=== PATIENT | male | born 1955 | race Caucasian/White ===

== ENCOUNTER 2017-10-16 14:57 | Inpatient (IN) ==
--- NOTE | 2017-10-16 15:12 | Emergency Department Note ---
Disposition Clinical Impression: Left-sided weakness Disposition: Admitted As Inpatient Condition: Fair Time of Disposition: 18:51 Neuro HPI - General Chief Complaint: ED Weakness Stated Complaint: left sided weakness, chest pain Time Seen by Provider: 10/16/17 14:59 Source: patient, family, EMS Mode of arrival: EMS Limitations: altered mental status Nursing Notes Reviewed: Yes Vital Signs Reviewed: Yes - History of Present Illness HPI Narrative: 62-year-old male history of A. fib on Xarelto, CAD, AICD, Cardimyopathy,HTN, HLD , history of CVA 4 years ago presents with a acute onset left-sided weakness, this was last done well at 12:30, his son states that he drove away, this is the last known well we think about 12:00 to 12:30. he came back at 1:00 with some facial droop slurred speech and unable to lift his left arm, stumbling around, they went to the [facility] and the [facility] did not get any imaging they did send them to [place] to be evaluated. He arrived here at 1504 Onset of Symptoms Date: 10/16/17 Onset of Symptoms Time: 12:30 Symptom Onset Unknown: Yes Timing confirmed by: family member Location: speech, left face, left arm, left leg History of same: Yes Severity: mild Symptoms Improving: Yes Improves with: time Context: gradual onset On Anticoagulants: No Associated symptoms: Reports: cough. Denies: confusion, chest pain, diaphoresis , fever/chills, headaches, loss of appetite - Related Data Home Medications: Home Medications Medication Instructions Recorded Confirmed Atorvastatin Calcium [Lipitor] 20 mg PO DAILY 09/25/15 10/16/17 Baclofen [Lioresal] 10 mg PO BID 09/25/15 10/16/17 Cholecalciferol (Vitamin D3) 3,000 unit PO DAILY 09/25/15 10/16/17 [Vitamin D3] Donepezil [Aricept] 10 mg PO HS 09/25/15 10/16/17 Insulin Glargine [Lantus] 60 unit SQ HS #0 09/25/15 10/16/17 Magnesium Oxide [Magnesium] 400 mg PO DAILY 09/25/15 10/16/17 Melatonin 12 mg PO HS 09/25/15 10/16/17 Multivit-Min/Iron Fum/Folic AC 1 each PO DAILY 09/25/15 10/16/17 [Ihptm-Bydstyh-Fiwwdkxh Tablet] Nitroglycerin [Nitrostat] 0.4 mg SL AD PRN 09/25/15 10/16/17 Omeprazole [PriLOSEC] 20 mg PO DAILY 09/25/15 10/16/17 Sertraline [Zoloft] 100 mg PO DAILY 09/25/15 10/16/17 Spironolactone [Aldactone] 25 mg PO DAILY 09/25/15 10/16/17 TraZODone 200 mg PO HS 09/25/15 10/16/17 Pregabalin [Lyrica] 225 mg PO BID 03/15/16 10/16/17 diazePAM [Valium] 5 mg PO TID 03/15/16 10/16/17 Insulin Human Regular [HumuLIN R] 3 - 8 unit SQ TIDWM 08/17/16 10/16/17 Lisinopril [Zestril] 2.5 mg PO DAILY 08/17/16 10/16/17 Sennosides/Docusate Sodium 100 tab PO HS 08/17/16 10/16/17 [Senna-Docusate Sodium Tablet] Isosorbide MONOnitrate [Isosorbide 40 mg PO DAILY 10/16/17 10/16/17 Mononitrate] Rivaroxaban [Xarelto] 20 mg PO HS 10/16/17 10/16/17 metFORMIN [Glucophage] 500 mg PO BIDWM 10/16/17 10/16/17 rOPINIRole [Requip] 0.25 mg PO HS 10/16/17 10/16/17 Previous Rx's Medication Instructions Recorded Aspirin [Adult Low Dose Aspirin EC] 81 mg PO DAILY #30 tablet. 09/25/15 Carbidopa/Levodopa 25/100 [Sinemet] 1 each PO TID #90 tablet 09/25/15 Furosemide [Lasix] 40 mg PO DAILY #30 tablet 08/19/16 OxyCODONE/APAP 10/325 [Percocet 1 each PO Q6H PRN #20 tablet 08/19/16 10/325 MG] Allergies/Adverse Reactions: Allergies Allergy/AdvReac Type Severity Reaction Status Date / Time codeine Allergy Mild Abdominal Verified 08/16/16 22:55 Pain All systems ED: reviewed and negative except as stated. Review of Systems: As Per HPI Constitutional: Reports: fever, chills Eyes: Denies: eye pain ENT ED: Reports: congestion. Denies: ear pain, throat pain Cardiovascular: Denies: chest pain Respiratory: Reports: cough, dyspnea Gastrointestinal: Denies: abdominal pain, nausea Genitourinary: Denies: urgency Musculoskeletal: Denies: back pain, neck pain Integumentary: Denies: rash Neurological: Reports: as per HPI, weakness, numbness. Denies: headache Past Medical History - Past Medical History Attestation: Yes The following information was validated with the patient. Source: patient Medical history: Reports: atrial fibrillation, cardiomyopathy, coronary artery disease, diabetes, GERD, hyperlipidemia, hypertension, myocardial infarction Surgical history: Reports: angioplasty/stent, appendectomy, cholecystectomy, other (unspecified abdominal), pacemaker Psychiatric history: Reports: anxiety, PTSD - Social History Smoking Status: Never smoker Smokeless Tobacco Status: No Alcohol use: Reports: none Drug use: Reports: none Physical Exam - General Limitations: altered mental status General appearance: alert - Head Head exam: atraumatic - Eye Eye exam: Present: normal appearance, PERRL - ENT ENT exam: normal exam - Neck Neck exam: Present: normal inspection, full ROM - Chest Chest inspection: Present: normal inspection - Respiratory Respiratory exam: Present: normal lung sounds bilaterally. Absent: respiratory distress - Cardiovascular Cardiovascular exam: Present: regular rate, normal rhythm - Abdominal Exam Abdominal exam: Present: soft, Non-Tender - Extremities Exam Extremities exam: Present: normal inspection, full ROM - Expanded Neurological Exam Patient oriented to: Present: person, place, time Speech: Absent: fluid speech Cranial nerves: EOM function (II, III, IV, ): Normal, facial sensation (V): Normal, facial palsy (VII): Normal, gag reflex (IX): Normal, spinal accessory function (XI): Normal, tongue deviation (XII): Normal Cerebellar function: finger to nose: Abnormal Left, heel to mendez: Normal Motor strength - LUE: 4/5 Motor strength - RUE: 5/5 Motor strength - LLE: 4/5 Motor strength - RLE: 5/5 Upper motor neuron exam: timoteo neglect: Absent bilaterally Coma Scale Eye Opening: Spontaneous Coma Scale Motor Response: Obeys Commands Coma Scale Verbal Response: Oriented Coma Scale Total: 15 - Psychiatric Psychiatric exam: Present: normal affect - Skin Skin exam: Present: warm, dry Course Course Narrative: Stroke alert activated at 1504 patient with left-sided sensory facial deficits, slurred speech, mild motor weakness on the left upper and lower extremity. NIH of 6. Also contraindications include Xarelto use, will get Accu-Chek basic lab work CT head, vital signs. [facility] telestroke to bedside - Reevaluation(s) Reevaluation #1: Patient with CTA head and neck, after CTA imaging will talk to neurology patient 's hemogram is stable at this time his NIH is improved to 4 for sensory, weakness, aphasia, but no ataxia anymore Time: 16:30 Reevaluation #2: CTA head and neck showed no evidence of acute stenosis, patient will be admitted to the hospitalist service Dr. Poole excepted the patient, patient was given aspirin, plan is for workup for stroke. Possible acute CVA outside of the window risk factors include Xarelto use and unclear last known well. Time: 18:50 - Consultations Consultation #1: Neurologist recommends no tPA, CTA head and Neck Vital Signs Temperature 98.8 F 10/16/17 14:58 Pulse Rate 76 10/16/17 14:58 Respiratory Rate 19 10/16/17 14:58 Blood Pressure 000/00 10/16/17 14:58 O2 Sat by Pulse Oximetry 97 10/16/17 14:58 Temperature 98.2 F 10/16/17 19:44 Pulse Rate 63 10/16/17 19:44 Respiratory Rate 17 10/16/17 19:44 Blood Pressure 122/62 10/16/17 19:44 O2 Sat by Pulse Oximetry 97 10/16/17 19:44 Oxygen Delivery Oxygen Delivery Room Air Neuro Symptoms/Deficit - Differential Diagnosis Likely: cerebrovascular accident, subarachnoid hemorrhage, transient cerebral ischemia, peripheral neuropathy - Medical Records Medical records reviewed: Yes I reviewed the patient's medical records. - Lab Data Lab results reviewed: Yes I reviewed the patient's lab results. Result diagrams: 10/16/17 15:18 10/16/17 15:18 Lab Results 10/16/17 10/16/17 10/16/17 Range/Units 15:18 15:18 15:18 WBC 10.6 (4.3-11.1) K/mcL RBC 4.49 (4.19-5.50) M/mcL Hgb 11.7 L (12.9-16.9) g/dL Hct 36.4 L (37.5-50.1) % MCV 81.1 L (83.0-100.0) fL MCH 26.1 L (28.0-33.3) pg MCHC 32.1 (31.6-35.5) g/dL RDW 18.2 H (11.5-14.5) % Plt Count 225 (140-400) K/mcL MPV 10.0 (9.4-12.4) fL Immature Gran % 0.4 (0-4) % Seg Neutrophils % 61.6 % Lymphocytes % 30.5 % Monocytes % 6.4 % Eosinophils % 0.7 % Basophils % 0.4 % Neutrophils # 6.5 (1.6-8.9) K/mcL Lymphocytes # 3.2 (0.6-4.6) K/mcL Monocytes # 0.7 (0.0-1.3) K/mcL Eosinophils # 0.1 (0.0-0.6) K/mcL Basophils # 0.0 (0.0-0.2) K/mcL PT 13.7 H (9.4-12.1) Seconds INR 1.3 APTT 30.2 (26.0-36.0) Seconds Sodium 135 L (136-145) mEq/L Potassium 4.4 (3.5-5.1) mEq/L Chloride 102 (98-107) mEq/L Carbon Dioxide 26 (23-29) mEq/L BUN 14 (8-23) mg/dL Creatinine 1.06 (0.70-1.30) mg/dL Est GFR ( Amer) > 60 (> 60) Est GFR (Non-Af Amer) > 60 (> 60) BUN/Creatinine Ratio 13 (6-26) Glucose 141 H (70-105) mg/dL Calculated Osmolality 283 (280-300) Calcium 9.0 (8.6-10.3) mg/dL Troponin I (< 0.04) ng/mL 10/16/17 Range/Units 15:18 WBC (4.3-11.1) K/mcL RBC (4.19-5.50) M/mcL Hgb (12.9-16.9) g/dL Hct (37.5-50.1) % MCV (83.0-100.0) fL MCH (28.0-33.3) pg MCHC (31.6-35.5) g/dL RDW (11.5-14.5) % Plt Count (140-400) K/mcL MPV (9.4-12.4) fL Immature Gran % (0-4) % Seg Neutrophils % % Lymphocytes % % Monocytes % % Eosinophils % % Basophils % % Neutrophils # (1.6-8.9) K/mcL Lymphocytes # (0.6-4.6) K/mcL Monocytes # (0.0-1.3) K/mcL Eosinophils # (0.0-0.6) K/mcL Basophils # (0.0-0.2) K/mcL PT (9.4-12.1) Seconds INR APTT (26.0-36.0) Seconds Sodium (136-145) mEq/L Potassium (3.5-5.1) mEq/L Chloride (98-107) mEq/L Carbon Dioxide (23-29) mEq/L BUN (8-23) mg/dL Creatinine (0.70-1.30) mg/dL Est GFR ( Amer) (> 60) Est GFR (Non-Af Amer) (> 60) BUN/Creatinine Ratio (6-26) Glucose (70-105) mg/dL Calculated Osmolality (280-300) Calcium (8.6-10.3) mg/dL Troponin I < 0.03 (< 0.04) ng/mL - Radiology Data Radiology results reviewed: Yes I reviewed the patient's radiology results. Head CT 10/16/17 15:08 IMPRESSION: No acute intracranial abnormality. Specifically, there are no findings diagnostic of an acute infarct. Critical results were called by Dr. Júnior Bill to Antonio Ontiveros on 10/16/2017 at 15:30. D/ / 10/16/2017 15:27:46 Júnior Bill / dino Interpreting Provider: Júnior Bill Chest X-Ray 10/16/17 15:09 IMPRESSION: No acute cardiopulmonary disease. Cardiomegaly without overt failure. D/ / Aman Fuentes MD / Aman Fuentes MD Interpreting Provider: Aman Fuentes MD Head CTA 10/16/17 15:50 IMPRESSION: No high-grade stenosis or focal occlusion involving the intracranial vasculature, or cervical vasculature. Mild atherosclerotic disease involving the bilateral carotid bifurcation, without flow-limiting stenosis. Additional findings as detailed above. D/ / 10/16/2017 17:31:20 Leif Fowler MD / trinity Interpreting Provider: Leif Fowler MD Neck CTA 10/16/17 15:50 IMPRESSION: No high-grade stenosis or focal occlusion involving the intracranial vasculature, or cervical vasculature. Mild atherosclerotic disease involving the bilateral carotid bifurcation, without flow-limiting stenosis. Additional findings as detailed above. D/ / 10/16/2017 17:31:20 Leif Fowler MD / trinity Interpreting Provider: Leif Fowler MD - EKG Data EKG attestation: Yes I reviewed and interpreted this EKG. EKG shows normal: sinus rhythm Rate: normal (60 bpm electronically ventricularly paced QRS 156 QTC 513 unchanged from previous EKG) When compared to previous EKG there are: no significant changes NIH Stroke Scale - Level of Consciousness LOC: Alert - LOC Questions LOC Questions: Answers both correctly - LOC Commands LOC Commands: Performs both correctly - Best Gaze Best Gaze: Normal - Visual Visual: No visual loss - Facial Palsy Facial Palsy: Normal - Motor Arms Motor Arm-Left: Drift, does NOT hit bed Motor Arm-Right: No drift for 10 seconds - Motor Legs Motor Leg-Left: Drift, does NOT hit bed Motor Leg-Right: No drift for 5 seconds - Limb Ataxia Limb Ataxia: Present in ONE limb - Sensory Sensory: Mild to moderate loss, "not as sharp" - Best Language Best Language: Mild to moderate aphasia. Examiner can identify picture from response - Dysarthria Dysarthria: Mild, slurs some words - Extinction and Inattention Extinction and Inattention: Normal - NIHSS Total Score NIHSS Total Score: 6 TPA Checklist - Source Information Source: Family - Eligibilty for IV tPA 1. LKW equal to or less than 4.5 hours be before treatment: Yes 2. Clinical diagnosis of ischemic stroke causing deficit: Yes 3. Age 18 years or older: No - Contraindications 4. Evidence of intracranial hemorrhage on pretreatment CT: No 5. Presentation suggests subarachnoid hem, even if CT normal: No 6. CT shows multilobar infarction: No 7. Known neoplasm, arteriovenous malformation, or aneurysm: No 8. Significant head trauma (w/ LOC) or CVA in last 3 months: No 9. BP elevated (systolic > 185 or diastolic > 110): No 10. Abnormal Blood Glucose (<50 or >400mg/dl): No 11. Active internal bleeding [PM.TPA15]: No 12. Known bleeding risk (including; not limited to 13-15): Yes 14. Platelet count less than 100,000/MM3: No 15. Current or recent use of anticoagualants (see protocol): Yes - Warnings/Precautions Considerations 16. Prior ischemic stroke within last 3 months: No 17. Recent history of intracranial hemorrhage: No 18. : No 19. Current/recent use Effient (7 days) or Brilinta (5 days): No 20. Arterial puncture at non compressible site or LP >7days: No 21. Major surgery or serious trauma in last 14 days: No 22. GI or urinary tract hemorrhage in last 21 days: No 23. DC involving left anterior myocardium in last 3 months: No 24. Suspected or known infective endocarditis/pericarditis: No - LKW: 3-4.5 hrs Add. Warnings/Precautions 21. oral anticoag other than warfarin regardles of last dose: Yes Attestation Statement - Attestation Attestation: I, Eb Carnes, examined this patient and my medical decision-making was reviewed with the BRAND LEAD/PA/Advanced Practice Nurse/Resident Physician. I agree with the documented findings, disposition and treatment plan as described except to the extent set forth below. Cc 2-year-old male presents emergency department with concerns of dysarthria, left upper extremity and left lower extremity weakness. Patient has a history of previous CVAs. He currently takes her alto. CT of the head did not show acute intracranial hemorrhage. Last known well was a few hours prior to arrival. Stroke alert was initiated after initial evaluation. [facility] neurologist did not recommend TPA. Patient continued to improve during his stay in the emergency department. He will be admitted to the hospital for further care and evaluation.
[2017-10-16 15:26] LABS: Basophils % 0.4 %; Eosinophils # 0.1 K/mcL (0.0-0.6); Eosinophils % 0.7 %; Hematocrit 36.4 % (37.5-50.1); Hemoglobin 11.7 g/dL (12.9-16.9); Immature Granulocytes % 0.4 % (0-4); Lymphocytes # 3.2 K/mcL (0.6-4.6); Lymphocytes % 30.5 %; Mean Corpuscular HGB Conc 32.1 g/dL (31.6-35.5); Mean Corpuscular Hemoglobin 26.1 pg (28.0-33.3); Mean Corpuscular Volume 81.1 fL (83.0-100.0); Monocytes # 0.7 K/mcL (0.0-1.3); Monocytes % 6.4 %; Neutrophils # 6.5 K/mcL (1.6-8.9); Platelet Count 225 K/mcL (140-400); Red Blood Count 4.49 M/mcL (4.19-5.50); Red Cell Distribution Width 18.2 % (11.5-14.5); Segmented Neutrophils % 61.6 %
[2017-10-16 15:31] LABS: INR 1.3; Prothrombin Time 13.7 Seconds (9.4-12.1)
[2017-10-16 15:34] LABS: Activated Partial Thrombo Time 30.2 Seconds (26.0-36.0)
[2017-10-16 15:54] LABS: BUN/Creatinine Ratio 13 (6-26); Blood Urea Nitrogen 14 mg/dL (8-23); Carbon Dioxide 26 mEq/L (23-29); Chloride 102 mEq/L (98-107); Glucose 141 mg/dL (70-105); Osmolality,Calculated 283 (280-300); Potassium 4.4 mEq/L (3.5-5.1); Sodium 135 mEq/L (136-145); eGFR For African Americans > 60 (> 60); eGFR For Non-African Americans > 60 (> 60)
[2017-10-16 18:11] LABS: Bilirubin,Urine Negative (Negative); Blood,Urine Negative (Negative); Clarity,Urine Clear (Clear); Color,Urine Yellow (Yellow); Glucose,Urine (UA) Normal (Normal); Ketones,Urine Negative (Negative); Leukocyte Esterase,Urine Negative (Negative); Nitrite,Urine Negative (Negative); Protein,Urine Negative (Neg-Trace); Specific Gravity,Urine > 1.030 (1.010-1.025); Urobilinogen,Urine Normal (Normal)
[2017-10-16] MEDS ORDERED: Aspirin 325 MG TABLET PO ONE (18:39)
[2017-10-16] MEDS ORDERED: *HR* Morphine 2 MG/ML SYRINGE IVP ONE (18:39)
[2017-10-16] MEDS ORDERED: Ondansetron 4 MG/2 ML VIAL IVP ONE (18:39)
--- NOTE | 2017-10-16 21:10 | Internal Med History&Physical ---
<Kalyn Connor-My - Last Filed: 10/16/17 22:03> Date of Encounter: 10/16/17 Time of Encounter: 21:04 Assessment and Plan (1) TIA (transient ischemic attack) Current visit: Yes Status: Acute The patient is comfortable and in no acute distress. Patient is afebrile. NIHSS of 1 on my exam for mild to moderate loss of sensation in left lower extremity. Vitals are within normal limits. [facility] telestroke in ED does not recommend tPA at this time since patient is on Xarelto and last well is unknown. CTA head and neck showed no evidence of acute stenosis. Per radiology report, head CT showed no acute intracranial abnormality. Specifically, there are no findings diagnostic of an acute infarct. Chest xray showed no acute cardiopulmonary processes. Will continue patient on stroke workup. 1. NIHSS Q4h. 2. Order MRI of head and brain without contrast in the AM. 3. Will make patient NPO at this time and change to ADA diet once patient pass bedside speech/dysphagia test. 4. Give patients IV fluids. 5. Have AM team consult neurology for any further recommendations in the AM. 6. Order an echocardiogram in the AM. 7. Order labs in the AM. 8. Continue patient on home Xarelto and aspirin. 9. Will place patient on cardiac monitoring. 10. Will give patient high dose statin. Qualifiers: Qualified Code(s): G45.9 - Transient cerebral ischemic attack, unspecified (2) Chronic atrial fibrillation Current visit: No Status: Chronic Afib is stable. Will continue patient's home medication of Xarelto. (3) Diabetes mellitus Current visit: No Status: Chronic Will place patient on insulin sliding scale. Continue to monitor the patient closely. Qualifiers: Diabetes mellitus type: type 2 Diabetes mellitus complication status: with neurologic complications Diabetes mellitus complication detail: with polyneuropathy Diabetes mellitus intermediate project manager insulin use: unspecified intermediate project manager insulin use status Qualified Code(s): E11.42 - Type 2 diabetes mellitus with diabetic polyneuropathy (4) HTN (hypertension) Current visit: No Status: Chronic Blood pressure is controlled. Will continue home medications and continue to monitor the patient closely. Qualifiers: Hypertension type: essential hypertension Qualified Code(s): I10 - Essential (primary) hypertension (5) HLD (hyperlipidemia) Current visit: No Status: Chronic HLD stable. Continue home medications. Will continue to monitor the patient closely. Qualifiers: Hyperlipidemia type: Pure hypercholesterolemia Qualified Code(s): E78.00 - Pure hypercholesterolemia, unspecified (6) Morbid obesity Current visit: No Status: Chronic (7) Left-sided weakness Current visit: Yes Status: Acute Left sided weakeness most likely secondary to TIA. Will continue to monitor the patient closely. See plan above. Internal Medicine - H&P: HPI Chief complaint: left sided weakness Admitted From: Emergency Dept History of present illness: Mr. López is a 62 year old male with a significant PMHx of Afib on Xarelto, CAD , Cardiomyopathy, HTN, HLD, CVA, and insulin dependent type 2 DM presented to the ED today complaining of left arm and leg weakness with numbness and tingling. The patient stated that it felt like his stroke in the past but not as severe. Patient is unsure of his last well known, but he thinks it is around noon today. Patient stated that he noticed the left sided weakness around 1:00pm and then the slurred speech occurred. He denies facial droop but he stated that his son noticed it. Patient admit that his blood pressure has been controlled and that he has been compliant with all of his medications. He denies any fever, cold and congestion symptoms, headaches, vision changes, nausea and vomiting, chest pain, difficulty breathing, shortness of breath, diarrhea, constipation, blood in his stool, dysuria, hematuria, and any seizures. Past Med Surg Social Fam HX - Past Medical History Medical history: atrial fibrillation, cardiomyopathy, coronary artery disease, diabetes, GERD, hyperlipidemia, hypertension, myocardial infarction Psychiatric history: anxiety, PTSD - Past Surgical History Surgical History: angioplasty/stent, appendectomy, cholecystectomy, other, pacemaker - Social History Smoking Status: Never smoker Smokeless Tobacco Status: No Alcohol use: none Drug use: none - Family History Father Adopted: No Living Status: Hx Family Cardiac Disorders: Yes (CT) Hx Family Respiratory Disorders: No Hx Family Cancer: No Hx Family GI Disorders: No Hx Family Endocrine Disorder: Yes (DM) Hx Family Neuromuscular Disorders: No Hx Family Neurologic Disorders: No Hx Family HEENT Disorders: No Hx Family Autoimmune Disorders: No Mother Living Status: Hx Family Cardiac Disorders: Yes (CT) Hx Family Endocrine Disorder: Yes (Diabetes) Hx Family Neurologic Disorders: Yes (Dementia) Internal Medicine - H&P: Meds Aspirin [Adult Low Dose Aspirin EC] 81 mg PO DAILY #30 tablet. 09/25/15 [Rx] Atorvastatin Calcium [Lipitor] 20 mg PO DAILY 09/25/15 [History] Baclofen [Lioresal] 10 mg PO BID 09/25/15 [History] Carbidopa/Levodopa 25/100 [Sinemet] 1 each PO TID #90 tablet 09/25/15 [Rx] Cholecalciferol (Vitamin D3) [Vitamin D3] 3,000 unit PO DAILY 09/25/15 [History] Donepezil [Aricept] 10 mg PO HS 09/25/15 [History] Insulin Glargine [Lantus] 60 unit SQ HS #0 09/25/15 [History] Magnesium Oxide [Magnesium] 400 mg PO DAILY 09/25/15 [History] Melatonin 12 mg PO HS 09/25/15 [History] Multivit-Min/Iron Fum/Folic AC [Emyzf-Qpwcnhn-Jcjzatbu Tablet] 1 each PO DAILY 09/25/15 [History] Nitroglycerin [Nitrostat] 0.4 mg SL AD PRN 09/25/15 [History] Omeprazole [PriLOSEC] 20 mg PO DAILY 09/25/15 [History] Sertraline [Zoloft] 100 mg PO DAILY 09/25/15 [History] Spironolactone [Aldactone] 25 mg PO DAILY 09/25/15 [History] TraZODone 200 mg PO HS 09/25/15 [History] Pregabalin [Lyrica] 225 mg PO BID 03/15/16 [History] diazePAM [Valium] 5 mg PO TID 03/15/16 [History] Insulin Human Regular [HumuLIN R] 3 - 8 unit SQ TIDWM 08/17/16 [History] Lisinopril [Zestril] 2.5 mg PO DAILY 08/17/16 [History] Sennosides/Docusate Sodium [Senna-Docusate Sodium Tablet] 100 tab PO HS [History] Furosemide [Lasix] 40 mg PO DAILY #30 tablet 08/19/16 [Rx] OxyCODONE/APAP 10/325 [Percocet 10/325 MG] 1 each PO Q6H PRN #20 tablet [Rx] Isosorbide MONOnitrate [Isosorbide Mononitrate] 40 mg PO DAILY 10/16/17 [History ] Rivaroxaban [Xarelto] 20 mg PO HS 10/16/17 [History] metFORMIN [Glucophage] 500 mg PO BIDWM 10/16/17 [History] rOPINIRole [Requip] 0.25 mg PO HS 10/16/17 [History] 3 Allergy/AdvReac Type Severity Reaction Status Date / Time codeine Allergy Mild Abdominal Verified 08/16/16 22:55 Pain All Systems PM: A 10-system review of systems was performed and is negative for pertinent findings except as documented above in the HPI. - Constitutional Vitals: Temp Pulse Resp BP Pulse Ox 98.2 F 63 17 122/62 97 10/16/17 19:44 10/16/17 19:44 10/16/17 19:44 10/16/17 19:44 10/16/17 19:44 General appearance: Present: cooperative, A&O X 3, obese. Absent: no acute distress - Head Head exam: Present: atraumatic, normocephalic - Eye Eye exam: Present: PERRL, conjuntiva pink, sclera anicteric Pupils: Present: PERRL - Neck Neck exam general surgery: Present: full ROM, supple, trachea midline. Absent: lymphadenopathy, tenderness, nuchal rigidity - Respiratory Respiratory exam: Present: CTAB. Absent: accessory muscle use, rales, respiratory distress, rhonchi, wheezes - Cardiovascular Cardiovascular exam: Present: RRR, +S1, +S2. Absent: diastolic murmur, gallop, JVD, rubs, systolic murmur - GI/Abdominal GI/Abdominal exam: Present: normal bowel sounds, soft, no peritoneal signs. Absent: distended, guarding, tenderness - Extremities Exam Extremities exam: Present: warm, radial pulses palpable and symmetrical. Absent : calf tenderness, cyanotic, pedal edema, tenderness - Neurological Exam Neurological exam: Present: alert, CN II-XII intact, oriented X3, no focal deficits. Absent: altered, motor sensory deficit, pronater drift, facial droop , speech deficit - Expanded Neurological Exam Neurological exam expanded: Present: protecting the airway. Absent: ataxia, expressive aphasia, inattentive, total aphasia, tremor Patient oriented to: Present: person, place, time Speech: Present: fluid speech. Absent: slurred, stutter Cranial Nerves: EOM's intact PM: Normal, tongue deviation PM: Normal Cerebellar function: finger to nose: Normal Neuro motor strength exam: LUE: 4, RUE: 5, LLE: 5, RLE: 5 Coma Scale Eye Opening: Spontaneous Coma Scale Motor Response: Obeys Commands Coma Scale Verbal Response: Oriented Coma Scale Total: 15 - Skin Skin exam: Present: dry, intact Internal Med - H&P Results - Labs CBC & Chem 7: 10/16/17 15:18 10/16/17 15:18 Labs: Urine 10/16/17 Range/Units 17:56 Urine Color Yellow (Yellow) Urine Clarity Clear (Clear) Urine pH 6.0 (5.0-8.0) pH Units Ur Specific [place] > 1.030 H (1.010-1.025) Urine Protein Negative (Neg-Trace) mg/dL Urine Glucose (UA) Normal (Normal) mg/dL <Lynette Randall - Last Filed: 10/17/17 03:43> Date of Encounter: 10/16/17 Time of Encounter: 21:30 Internal Medicine - H&P: HPI History of present illness: Mr. López is a 62 year old male All Systems PM: A 10-system review of systems was performed and is negative for pertinent findings except as documented above in the HPI. - Constitutional Vitals: Temp Pulse Resp BP Pulse Ox 98.2 F 58 12 132/76 97 10/16/17 23:23 10/16/17 23:23 10/16/17 23:23 10/16/17 23:23 10/16/17 23:23 Internal Med - H&P Results - Labs CBC & Chem 7: 10/16/17 15:18 10/16/17 15:18 Labs: Urine 10/16/17 Range/Units 17:56 Urine Color Yellow (Yellow) Urine Clarity Clear (Clear) Urine pH 6.0 (5.0-8.0) pH Units Ur Specific [place] > 1.030 H (1.010-1.025) Urine Protein Negative (Neg-Trace) mg/dL Urine Glucose (UA) Normal (Normal) mg/dL - Attending Attestation Patient is a 62y/o male admitted for left sided weakness, symptoms concerning for CVA. Upon arrival STroke alert was called and [facility] neurology team was consulted. tPA was not recommended given pt being on Xarelto Pt independently seen and examined at bedside. During my evaluation, pt reports of improvement in his symptoms since hospitalization Will obtain MRI, 2D echo, carotid doppler, PT/OT evaluation for CVA work up History of Afib, not on anything for rate control and noted to be bradycardic. Anticoagulated with Xarelto Obtain Neurology evaluation in am history of DM, sliding scale insulin algorithm, monitor FS and BG. ADA diet if clears bedside dysphagia screening. Case discussed with resident physician Simone oCnnor, I agree with her documented findings, assessment, and plan except as listed above.
[2017-10-16] MEDS ORDERED: Naloxone 0.4 MG/ML INJ IVP PRN (21:28)
[2017-10-16] MEDS ORDERED: Acetaminophen 325 MG TABLET PO PRN (21:28)
[2017-10-16] MEDS ORDERED: Ondansetron 4 MG/2 ML VIAL IVP PRN (21:28)
[2017-10-16] MEDS ORDERED: 0.9 % Sodium Chloride 1,000 ML IVC SCH (21:30)
[2017-10-16] MEDS ORDERED: D5% in Water 1,000 ML IVC PRN (21:34)
[2017-10-16] MEDS ORDERED: *HR* Dextrose 50 % in Water (Syg) 50 ML SYRINGE IVP PRN (21:34)
[2017-10-16] MEDS ORDERED: Dextrose Gel 15 GM/37.5 ML TUBE PO PRN ×2 (21:34)
[2017-10-16] MEDS ORDERED: Nitroglycerin 0.4 MG TAB.SUBL SL PRN (21:36)
[2017-10-16] MEDS ORDERED: NON-FORMULARY MEDICATION 1 EACH EACH (Insulin Glargine [Lantus] 60 UNIT) SQ SCH (21:52)
[2017-10-16] MEDS ORDERED: Insulin DETEMIR 100 UNIT/ML X5UNITS SQ SCH (22:15)
[2017-10-16] MEDS: *HR* OxyCODONE/APAP 10/325 TABLET PO PRN (22:30)
[2017-10-16] MEDS: diazePAM 5 MG TABLET PO PRN (22:40)
[2017-10-17 05:08] LABS: Basophils % 0.4 %; Eosinophils # 0.1 K/mcL (0.0-0.6); Eosinophils % 1.5 %; Hematocrit 36.2 % (37.5-50.1); Hemoglobin 11.2 g/dL (12.9-16.9); Immature Granulocytes % 0.2 % (0-4); Lymphocytes # 3.7 K/mcL (0.6-4.6); Lymphocytes % 40.3 %; Mean Corpuscular HGB Conc 30.9 g/dL (31.6-35.5); Mean Corpuscular Hemoglobin 25.3 pg (28.0-33.3); Mean Corpuscular Volume 81.9 fL (83.0-100.0); Mean Platelet Volume 10.5 fL (9.4-12.4); Monocytes # 0.7 K/mcL (0.0-1.3); Neutrophils # 4.7 K/mcL (1.6-8.9); Platelet Count 234 K/mcL (140-400); Red Blood Count 4.42 M/mcL (4.19-5.50); Red Cell Distribution Width 18.4 % (11.5-14.5); Segmented Neutrophils % 50.6 %
[2017-10-17 05:12] LABS: Prothrombin Time 10.9 Seconds (9.4-12.1)
[2017-10-17 05:15] LABS: Activated Partial Thrombo Time 25.2 Seconds (26.0-36.0)
[2017-10-17 05:31] LABS: BUN/Creatinine Ratio 14 (6-26); Blood Urea Nitrogen 13 mg/dL (8-23); Calcium 8.5 mg/dL (8.6-10.3); Carbon Dioxide 25 mEq/L (23-29); Chloride 104 mEq/L (98-107); Cholesterol 160 mg/dL (< 200); Glucose 118 mg/dL (70-105); HDL Cholesterol 40 mg/dL (40-59); LDL Cholesterol,Calculated 60 mg/dL (0-99); Magnesium 1.9 mg/dL (1.6-2.6); Osmolality,Calculated 281 (280-300); Phosphorous 3.3 mg/dL (2.7-4.5); Potassium 4.2 mEq/L (3.5-5.1); Sodium 135 mEq/L (136-145); Triglycerides 298 mg/dL (< 150); eGFR For African Americans > 60 (> 60); eGFR For Non-African Americans > 60 (> 60)
[2017-10-17] MEDS: *HR* OxyCODONE/APAP 10/325 TABLET PO PRN ×2 (05:49→14:31)
[2017-10-17] MEDS: Insulin LISPRO 300 UNITS/3 ML VIAL SQ SCH ×4 (07:31→12:28)
[2017-10-17] MEDS ORDERED: Magnesium Oxide 400 MG TABLET PO SCH (09:00)
[2017-10-17] MEDS ORDERED: Isosorbide MONOnitrate (24 HR) 30 MG TAB.ER.24H PO SCH (09:00)
[2017-10-17] MEDS ORDERED: Aspirin Enteric Coated 81 MG Tablet PO SCH (09:00)
[2017-10-17] MEDS ORDERED: Cholecalciferol (D-3) 1,000 UNIT TABLET PO SCH (09:00)
[2017-10-17] MEDS ORDERED: Spironolactone 25 MG TABLET PO SCH (09:00)
[2017-10-17] MEDS ORDERED: Baclofen 10 MG TABLET PO SCH (09:00)
[2017-10-17] MEDS ORDERED: ISOSORBIDE MONONITRATE PO SCH (09:00)
[2017-10-17] MEDS ORDERED: diazePAM 5 MG TABLET PO SCH (09:00)
[2017-10-17] MEDS ORDERED: Multivit/Ca/Min/Fe/FA 1 TAB TABLET PO SCH (09:00)
[2017-10-17] MEDS ORDERED: Pregabalin 75 MG CAPSULE PO SCH (09:00)
[2017-10-17] MEDS ORDERED: Furosemide 40 MG TABLET PO SCH (09:00)
[2017-10-17] MEDS: Carbidopa/Levodopa 25/100 TABLET PO SCH ×2 (09:24→14:32)
[2017-10-17] MEDS: diazePAM 5 MG TABLET PO PRN (09:30)
[2017-10-17 10:56] VITALS: BP 118/70
--- NOTE | 2017-10-17 12:28 | Electrocardiograph Report ---
[address] [place] [address] Test Date: 2017-10-16 Pat Name: Hector López Department: 104 Room: 3B16 Gender: M Final Inspector And Tester: AM : 1955 Requested By: Roslyn Mckeon Order Number: [id number] Reading MD: Simone Mc MD Measurements Intervals [place] Rate: 60 P: SD: 0 QRS: -84 QRSD: 156 T: 68 QT: 513 QTc: 513 Interpretive Statements ELECTRONIC VENTRICULAR PACEMAKER ABNORMAL RHYTHM ECG Electronically Signed On 10-17-2017 12:26:55 EST by Simone Mc MD
--- NOTE | 2017-10-17 12:50 | Discharge Summary ---
Date of Encounter: 10/17/17 Time of Encounter: 12:50 - Discharge Diagnosis (1) TIA (transient ischemic attack) Priority: Primary Status: Suspected Comments: possible. Presented with acute onset left arm paresthesia and weakness. Head/ neck CTA without stenosis or occlusion. Unable to have brain MRI due to PPM/ AICD. TTE was preserved EF, no PFO or cardiac source of emboli. Preliminary bilateral carotid Dopplers with nonstenotic plaque. Discussed case with Dr. Blackburn who noted possible TIA however unclear if patient had baseline left-sided weakness (patient reports possible previous CVA with residual left-sided weakness). Patient already on Xarelto and ASA. No further neurological workup warranted at this time per Dr. Blackburn. Continue Xarelto, ASA. [facility] Qualifiers: Qualified Code(s): G45.9 - Transient cerebral ischemic attack, unspecified (2) Chronic atrial fibrillation Priority: Secondary Status: Chronic Comments: per hx. Has PPM. Rate controlled despite not being on monserrat blocking agent. Heart rates 60s to 50s. Cont Xarelto (3) Diabetes mellitus Priority: Secondary Status: Chronic Comments: per hx. Blood sugars controlled. Cont home diabetes medication regimen Qualifiers: Diabetes mellitus type: type 2 Diabetes mellitus complication status: with neurologic complications Diabetes mellitus complication detail: with polyneuropathy Diabetes mellitus rodent exterminator insulin use: unspecified rodent exterminator insulin use status Qualified Code(s): E11.42 - Type 2 diabetes mellitus with diabetic polyneuropathy (4) HTN (hypertension) Priority: Secondary Status: Chronic Comments: per hx. BP controlled. Cont home BP medication Qualifiers: Hypertension type: essential hypertension Qualified Code(s): I10 - Essential (primary) hypertension (5) Morbid obesity Priority: Secondary Status: Chronic Comments: BMI 41; weight 136kg. Lifestyle modifications encouraged - Discharge Medications Home Medications: Aspirin [Adult Low Dose Aspirin EC] 81 mg PO DAILY #30 tablet. 09/25/15 [Rx] Atorvastatin Calcium [Lipitor] 20 mg PO DAILY 09/25/15 [History] Baclofen [Lioresal] 10 mg PO BID 09/25/15 [History] Carbidopa/Levodopa 25/100 [Sinemet] 1 each PO TID #90 tablet 09/25/15 [Rx] Cholecalciferol (Vitamin D3) [Vitamin D3] 3,000 unit PO DAILY 09/25/15 [History] Donepezil [Aricept] 10 mg PO HS 09/25/15 [History] Insulin Glargine [Lantus] 60 unit SQ HS #0 09/25/15 [History] Magnesium Oxide [Magnesium] 400 mg PO DAILY 09/25/15 [History] Melatonin 12 mg PO HS 09/25/15 [History] Multivit-Min/Iron Fum/Folic AC [Nzswg-Olhhhaz-Ilcunpng Tablet] 1 each PO DAILY 09/25/15 [History] Nitroglycerin [Nitrostat] 0.4 mg SL AD PRN 09/25/15 [History] Omeprazole [PriLOSEC] 20 mg PO DAILY 09/25/15 [History] Sertraline [Zoloft] 100 mg PO DAILY 09/25/15 [History] Spironolactone [Aldactone] 25 mg PO DAILY 09/25/15 [History] TraZODone 200 mg PO HS 09/25/15 [History] Pregabalin [Lyrica] 225 mg PO BID 03/15/16 [History] diazePAM [Valium] 5 mg PO TID 03/15/16 [History] Insulin Human Regular [HumuLIN R] 3 - 8 unit SQ TIDWM 08/17/16 [History] Lisinopril [Zestril] 2.5 mg PO DAILY 08/17/16 [History] Sennosides/Docusate Sodium [Senna-Docusate Sodium Tablet] 100 tab PO HS [History] Furosemide [Lasix] 40 mg PO DAILY #30 tablet 08/19/16 [Rx] OxyCODONE/APAP 10/325 [Percocet 10/325 MG] 1 each PO Q6H PRN #20 tablet [Rx] Isosorbide MONOnitrate [Isosorbide Mononitrate] 40 mg PO DAILY 10/16/17 [History ] Rivaroxaban [Xarelto] 20 mg PO HS 10/16/17 [History] metFORMIN [Glucophage] 500 mg PO BIDWM 10/16/17 [History] rOPINIRole [Requip] 0.25 mg PO HS 10/16/17 [History] Allergies/Adverse Reactions: 3 Allergy/AdvReac Type Severity Reaction Status Date / Time codeine Allergy Mild Abdominal Verified 08/16/16 22:55 Pain Procedures/tests Complete & Pending: Procedures Performed prior 72 hours Category Date Time Status ECG 12 lead ECG [ECG] Routine Y 10/16/17 15:01 Completed EV carotid duplex imaging BI Routine Y 10/16/17 21:49 Completed EV echocardiogram Routine Y 10/16/17 21:33 Completed Date of admission: 10/16/17 17:50 [facility] care physician: [facility] Consults: 10/16/17 21:49 Consult to Neurology [CONS] Routine Consulting Provider: Neurology [facility] Reason for Consult: CVA Call Completed: No 10/16/17 21:51 Consult to Occupational Therapy [CONS] Routine Comment: Evaluate, develop and implement POC Reason for Consult: CVA Consult to Physical Therapy [CONS] Routine Comment: Evaluate, develop and implement POC Reason for Consult: CVA Discharging clinician: Roslyn Mckeon Anticipated date of discharge: 10/17/17 - Patient Status Disposition: Home, Self-Care Condition: Good Functional capacity at discharge: independent ambulation Overall status at discharge: patient is progressing back to baseline - Discharge Instructions Instructions: Transient Ischemic Attack (DC), Ischemic Stroke (DC) [facility]: [facility] [Primary Care Provider] - - Diet and Activity Activity: as per physical therapy, increase activity as tolerated Diet: diabetic diet, low fat, low cholesterol Interval History: Seen and examined at bedside. Patient is new to me, information obtained from chart review and patient report. Patient still with left-sided weakness but overall improved. Says he would like to go home today if possible. No chest pain or shortness of breath. No blurred or double vision, no slurred speech or facial droop. Patient advised to kidney current medication regimen and [facility]-2 weeks. Hospital course: Mr. López is a 62 year old male - Time Spent with Patient Total time spent providing and/or coordinating discharge services: - Constitutional Vitals: Temp Pulse Resp BP Pulse Ox 98.2 F 60 18 118/70 98 10/17/17 10:50 10/17/17 10:50 10/17/17 10:50 10/17/17 10:50 10/17/17 10:50 General appearance: Present: cooperative, A&O X 3, morbidly obese, obese. Absent: no acute distress - Head Head exam: Present: atraumatic, normocephalic - Eye Eye exam: Present: PERRL, conjuntiva pink, sclera anicteric Pupils: Present: PERRL - Neck Neck exam general surgery: Present: supple, trachea midline. Absent: lymphadenopathy - Respiratory Respiratory exam: Present: CTAB. Absent: accessory muscle use, rales, rhonchi, wheezes - Cardiovascular Cardiovascular exam: Present: RRR, +S1, +S2. Absent: diastolic murmur, gallop, rubs, systolic murmur - GI/Abdominal GI/Abdominal exam: Present: normal bowel sounds, soft, no peritoneal signs. Absent: distended, tenderness - Extremities Exam Extremities exam: Present: warm, radial pulses palpable and symmetrical. Absent : calf tenderness, cyanotic, pedal edema - Neurological Exam Neurological exam: Present: CN II-XII intact, oriented X3, no focal deficits. Absent: strengths equal and symetr throughout, pronater drift, facial droop, speech deficit Additional comments: Left upper and lower extremity 4/5 - Skin Skin exam: Present: dry, intact
--- NOTE | 2017-10-17 13:04 | Neurology - Consult Note ---
Date of Encounter: 10/17/17 Time of Encounter: 11:00 Assessment and Plan (1) Left-sided weakness Current Visit: Yes Status: Acute This appears to be rather subacute to chronic condition per history this has been present for more than two months nd currently he subjectively feels weak to the left arm and leg but i saw no pronator drift. Left leg is limping therefore may be some thing related to lumbar DDD. Is on Xarelto and aspirin therefore treatment appears adequate. She may have lacunar infarct which can not be excluded without MRI. Will keep him on current regimen no changes. He is follow up with PCP at [facility] and carotid artery duplex and echo may be helpful, but he is currently adequately treated. Patient can be discharged from neurology perspective. History of Present Illness Chief complaint: left sided weakness HPI: Mr. López is a 62 year old male with PMH significant for CHF, atrial fibrillation, HTN, hyperlipidemia, Obesity who developed acute onset of left sided weakness. This was reported by the patient in the ER yesterday but further inquiry revealed that the left sided weakness occurred about two months ago. He states that he gets his pain medication from a doctor in [place] who is willing to provide the pain meds for him and about two months ago he was the doctor who found that the patient had left sided weakness. When he walks he limps to the left side, the severity of the left sided weakness worsened a little yesterday prompting ER visit. He is feeling better now. He describes a type of numbness tingling to the left leg. He as atrial fibrillation and is on Xarelto and aspirin. Initial CT of head showed no acute intracranial abnormality Past Med Surg Social Fam HX - Past Medical History Medical history: atrial fibrillation, cardiomyopathy, coronary artery disease, diabetes, GERD, hyperlipidemia, hypertension, myocardial infarction Psychiatric history: anxiety, PTSD - Past Surgical History Surgical History: angioplasty/stent, appendectomy, cholecystectomy, other ( unspecified abdominal), pacemaker - Social History Smoking Status: Never smoker Smokeless Tobacco Status: No Alcohol use: none Drug use: none - Family History Father Adopted: No Living Status: Hx Family Cardiac Disorders: Yes (DC) Hx Family Respiratory Disorders: No Hx Family Cancer: No Hx Family GI Disorders: No Hx Family Endocrine Disorder: Yes (DM) Hx Family Neuromuscular Disorders: No Hx Family Neurologic Disorders: No Hx Family HEENT Disorders: No Hx Family Autoimmune Disorders: No Mother Living Status: Hx Family Cardiac Disorders: Yes (DC) Hx Family Endocrine Disorder: Yes (Diabetes) Hx Family Neurologic Disorders: Yes (Dementia) Medications and Allergies Aspirin [Adult Low Dose Aspirin EC] 81 mg PO DAILY #30 tablet. 09/25/15 [Rx] Atorvastatin Calcium [Lipitor] 20 mg PO DAILY 09/25/15 [History] Baclofen [Lioresal] 10 mg PO BID 09/25/15 [History] Carbidopa/Levodopa 25/100 [Sinemet] 1 each PO TID #90 tablet 09/25/15 [Rx] Cholecalciferol (Vitamin D3) [Vitamin D3] 3,000 unit PO DAILY 09/25/15 [History] Donepezil [Aricept] 10 mg PO HS 09/25/15 [History] Insulin Glargine [Lantus] 60 unit SQ HS #0 09/25/15 [History] Magnesium Oxide [Magnesium] 400 mg PO DAILY 09/25/15 [History] Melatonin 12 mg PO HS 09/25/15 [History] Multivit-Min/Iron Fum/Folic AC [Friyw-Ascjyzo-Uxmrdcqa Tablet] 1 each PO DAILY 09/25/15 [History] Nitroglycerin [Nitrostat] 0.4 mg SL AD PRN 09/25/15 [History] Omeprazole [PriLOSEC] 20 mg PO DAILY 09/25/15 [History] Sertraline [Zoloft] 100 mg PO DAILY 09/25/15 [History] Spironolactone [Aldactone] 25 mg PO DAILY 09/25/15 [History] TraZODone 200 mg PO HS 09/25/15 [History] Pregabalin [Lyrica] 225 mg PO BID 03/15/16 [History] diazePAM [Valium] 5 mg PO TID 03/15/16 [History] Insulin Human Regular [HumuLIN R] 3 - 8 unit SQ TIDWM 08/17/16 [History] Lisinopril [Zestril] 2.5 mg PO DAILY 08/17/16 [History] Sennosides/Docusate Sodium [Senna-Docusate Sodium Tablet] 100 tab PO HS [History] Furosemide [Lasix] 40 mg PO DAILY #30 tablet 08/19/16 [Rx] OxyCODONE/APAP 10/325 [Percocet 10/325 MG] 1 each PO Q6H PRN #20 tablet [Rx] Isosorbide MONOnitrate [Isosorbide Mononitrate] 40 mg PO DAILY 10/16/17 [History ] Rivaroxaban [Xarelto] 20 mg PO HS 10/16/17 [History] metFORMIN [Glucophage] 500 mg PO BIDWM 10/16/17 [History] rOPINIRole [Requip] 0.25 mg PO HS 10/16/17 [History] 3 Allergy/AdvReac Type Severity Reaction Status Date / Time codeine Allergy Mild Abdominal Verified 08/16/16 22:55 Pain All Systems: A 10-system review of systems was performed and is negative for pertinent findings except as documented above in the HPI. Physical Examination - Vital Signs Vital Signs: Initial Vital Signs Temp Pulse Resp BP Pulse Ox 98.8 F 76 19 000/00 97 10/16/17 14:58 10/16/17 14:58 10/16/17 14:58 10/16/17 14:58 10/16/17 14:58 - Neurologic Detailed motor examination: full strength in all major muscle groups Motor examination - right side: 5/5: deltoids, biceps, triceps, wrist flexion, wrist extension, filter screen cleaner, hip flexors, tibialis Anterior, quadriceps, toe extension (EHL), plantarflexion Motor examination - left side: 4/5: quadriceps, tibialis Anterior, toe extension (EHL), plantarflexion, 5/5: deltoids, biceps, triceps, wrist flexion, wrist extension, hip flexors, filter screen cleaner Detailed sensory examination: intact Posture: other (None) Reflex and gait examination: intact Reflexes: Biceps: 2+, Triceps: 2+, Brachioradialis: 2+, Patella: 2+, Achilles: 2 + Mental Status Examination: awake, alert, oriented to person, oriented to place, oriented to time, follows commands appropriately, answers questions appropriately, no agnosia, no aphasia, no aproxia Cranial nerve examination: PERRL, EOMI, visual peñaloza intact, corneal reflexes brisk symmetrically, sensory to face intact, mastication intact, no facial asymmetry is present, no dysarthria, hearing is intact symmetrically, soft palate elevates bilaterally upon phonation, gag reflex intact, flexes SCM and trapezius muscles symmetrically with full power, tongue protrudes midline, no atrophy or facial fasiculations present Cerebellar examination: no dysmetria, performs finger to nose and heel to mendez symmetrically without ataxia, no gait ataxia, no truncal ataxia, no difficulty with rapid alternating movements Results - Laboratory Findings CBC and BMP: 10/17/17 04:26 10/17/17 04:26 Abnormal lab findings: Abnormal lab results Hgb 11.2 g/dL (12.9-16.9) L 10/17/17 04:26 Hct 36.2 % (37.5-50.1) L 10/17/17 04:26 MCV 81.9 fL (83.0-100.0) L 10/17/17 04:26 MCH 25.3 pg (28.0-33.3) L 10/17/17 04:26 MCHC 30.9 g/dL (31.6-35.5) L 10/17/17 04:26 RDW 18.4 % (11.5-14.5) H 10/17/17 04:26 APTT 25.2 Seconds (26.0-36.0) L 10/17/17 04:26 Sodium 135 mEq/L (136-145) L 10/17/17 04:26 Glucose 118 mg/dL (70-105) H 10/17/17 04:26 POC Glucose 99 (58-89) H 10/16/17 20:37 Calcium 8.5 mg/dL (8.6-10.3) L 10/17/17 04:26 Triglycerides 298 mg/dL (< 150) H 10/17/17 04:26 VLDL Cholesterol, Calc 60 mg/dL (< 31) H 10/17/17 04:26 Ur Specific [place] > 1.030 (1.010-1.025) H 10/16/17 17:56 Consult Discharge Plan - Plan Instructions: Transient Ischemic Attack (DC), Ischemic Stroke (DC) [facility]errals: [facility] [Primary Care Provider[facility] -
[2017-10-17] MEDS ORDERED: rOPINIRole 0.25 MG TABLET PO SCH (21:00)
[2017-10-17] MEDS ORDERED: Insulin LISPRO 300 UNITS/3 ML VIAL SQ SCH (21:00)
[2017-10-17] MEDS ORDERED: *HR* Rivaroxaban 10 MG TABLET PO SCH (21:00)
[2017-10-17] MEDS ORDERED: traZODone 50 MG TABLET PO SCH (21:00)
[2017-10-17] MEDS ORDERED: Melatonin 3 MG TABLET PO SCH (21:00)
[2017-10-17] MEDS ORDERED: Sennosides/Docusate Sodium TABLET PO SCH (21:00)
[2017-10-17] MEDS ORDERED: NON-FORMULARY MEDICATION 1 EACH EACH (Insulin Glargine [Lantus] 60 UNIT) SQ SCH (21:00)
== END 2017-10-17 14:45 | disposition home or self-care (01) | DRG 69 ==
LOC: EMEROO 14:57 → 3BNU 17:50
PROVIDERS: ADMIT Internal Medicine; ATTEND Registered Nurse

== ENCOUNTER 2021-03-01 22:23 | Inpatient (IN) ==
[2021-03-02] MEDS ORDERED: *HR* OxyCODONE Immed Rel 5 MG TABLET PO PRN (01:27)
[2021-03-02] MEDS ORDERED: *HR* HYDROcodone/Acet 5/325 mg TABLET PO PRN (01:27)
[2021-03-02] MEDS ORDERED: Naloxone 0.4 MG/ML INJ IVP PRN (01:27)
[2021-03-02] MEDS ORDERED: *HR* Promethazine 25 MG/ML VIAL IM PRN (01:27)
[2021-03-02] MEDS ORDERED: Acetaminophen 325 MG TABLET PO PRN (01:27)
[2021-03-02] MEDS ORDERED: Ondansetron 4 MG/2 ML VIAL IVP PRN (01:27)
[2021-03-02] MEDS: Ringers Solution, Lactated 1,000 ML IVC SCH (02:03)
[2021-03-02] MEDS ORDERED: *HR* LORazepam 2 MG/ML VIAL IM STA (05:32)
[2021-03-02 05:36] LABS: Basophils # 0.1 K/mcL (0.0-0.2); Basophils % 0.6 %; Eosinophils # 0.3 K/mcL (0.0-0.6); Eosinophils % 3.7 %; Hematocrit 39.5 % (37.5-50.1); Hemoglobin 13.3 g/dL (12.9-16.9); Immature Granulocytes % 0.2 % (0-4); Lymphocytes # 2.8 K/mcL (0.6-4.6); Lymphocytes % 32.4 %; Mean Corpuscular HGB Conc 33.7 g/dL (31.6-35.5); Mean Corpuscular Hemoglobin 31.5 pg (28.0-33.3); Mean Corpuscular Volume 93.6 fL (83.0-100.0); Mean Platelet Volume 11.4 fL (9.4-12.4); Monocytes # 0.8 K/mcL (0.0-1.3); Monocytes % 8.9 %; Neutrophils # 4.8 K/mcL (1.6-8.9); Platelet Count 194 K/mcL (140-400); Red Blood Count 4.22 M/mcL (4.19-5.50); Red Cell Distribution Width 11.9 % (11.5-14.5); Segmented Neutrophils % 54.2 %; White Blood Count 8.8 K/mcL (4.3-11.1)
[2021-03-02 05:50] LABS: INR 1.2; Prothrombin Time 13.9 Seconds (9.4-12.1)
[2021-03-02 05:57] LABS: BUN/Creatinine Ratio 12 (6-26); Blood Urea Nitrogen 8 mg/dL (8-23); Calcium 8.5 mg/dL (8.6-10.3); Carbon Dioxide 29 mEq/L (23-29); Chloride 101 mEq/L (98-107); Chol/HDL Ratio 3.7 (0-4.9); Cholesterol 134 mg/dL (< 200); Glucose 172 mg/dL (70-105); HDL Cholesterol 36 mg/dL (40-59); LDL Cholesterol,Calculated 55 mg/dL (< 100); Magnesium 1.1 mg/dL (1.6-2.6); Osmolality,Calculated 290 (280-300); Potassium 3.6 mEq/L (3.5-5.1); Sodium 139 mEq/L (136-145); Triglycerides 215 mg/dL (< 150); eGFR For African Americans > 60 (> 60); eGFR For Non-African Americans > 60 (> 60)
[2021-03-02] MEDS ORDERED: D5% in Water 1,000 ML IVC PRN (08:49)
[2021-03-02] MEDS ORDERED: *HR* Dextrose 50 % in Water (Vial) 50 ML VIAL IVP PRN (08:49)
[2021-03-02] MEDS ORDERED: Dextrose Gel 15 GM/37.5 ML TUBE PO PRN ×2 (08:49)
[2021-03-02 10:19] LABS: Acetaminophen < 10 mcg/mL (10-20); Ethanol < 10 mg/dL (Less than 10); Salicylate < 2.5 mg/dL (15.0-30.0)
[2021-03-02] MEDS: Calcium Gluconate 1gm/50mL 1 GM/50 ML BAG IVPB SCH ×2 (10:35→11:31)
[2021-03-02 11:02] LABS: C-Reactive Protein 41 mg/L (Less than 10)
[2021-03-02 12:10] LABS: Estimated Average Glucose 332 mg/dl; Hemoglobin A1C 13.2 %
[2021-03-02] MEDS ORDERED: Insulin DETEMIR 100 UNIT/ML X5UNITS SUBQ SCH (21:30)
[2021-03-02] MEDS ORDERED: diazePAM 5 MG TABLET PO PRN (22:00)
[2021-03-02] MEDS: Insulin LISPRO 300 UNITS/3 ML VIAL SUBQ SCH (22:44)
[2021-03-02] MEDS: Melatonin 3 MG TABLET PO SCH (22:45)
[2021-03-03 01:17] LABS: Bilirubin,Urine Negative (Negative); Blood,Urine Negative (Negative); Clarity,Urine Clear (Clear); Color,Urine Light-Yellow (Yellow); Glucose,Urine (UA) 200 mg/dL (Normal); Ketones,Urine Trace mg/dL (Negative); Leukocyte Esterase,Urine Negative (Negative); Mucus,Urine Few per lpf (None-Few); Nitrite,Urine Negative (Negative); Protein,Urine Negative (Neg-Trace); Specific Gravity,Urine 1.015 (1.010-1.025); Squamous Epithelial Cell,Urine Few per hpf (None-Few); WBC,Urine 0-3 per hpf (0-3)
[2021-03-03 01:20] LABS: Amphetamine Screen,Urine Negative ng/mL (Cutoff=1000); Barbiturate Screen,Urine Negative ng/mL (Cutoff=200); Benzodiazepines Screen,Urine Positive ng/mL (Cutoff=200); Cannabinoid Screen,Urine Negative ng/mL (Cutoff = 50); Cocaine Screen,Urine Negative ng/mL (Cutoff= 300); Opiate Screen,Urine Negative ng/mL (Cutoff=300); Phencyclidine Screen,Urine Negative ng/mL (Cutoff=25)
[2021-03-03] MEDS: *HR* Heparin 5,000 UNIT/ML VIAL SQ SCH ×3 (05:03→20:30)
[2021-03-03] MEDS: Levothyroxine 25 MCG TABLET PO SCH (05:03)
[2021-03-03 05:24] LABS: Basophils # 0.1 K/mcL (0.0-0.2); Basophils % 0.7 %; Eosinophils # 0.2 K/mcL (0.0-0.6); Eosinophils % 2.3 %; Hematocrit 37.8 % (37.5-50.1); Immature Granulocytes % 0.6 % (0-4); Lymphocytes # 2.4 K/mcL (0.6-4.6); Lymphocytes % 32.7 %; Mean Corpuscular HGB Conc 34.4 g/dL (31.6-35.5); Mean Corpuscular Hemoglobin 31.7 pg (28.0-33.3); Mean Corpuscular Volume 92.2 fL (83.0-100.0); Mean Platelet Volume 11.9 fL (9.4-12.4); Monocytes # 0.7 K/mcL (0.0-1.3); Monocytes % 10.1 %; Neutrophils # 3.9 K/mcL (1.6-8.9); Platelet Count 194 K/mcL (140-400); Red Cell Distribution Width 11.9 % (11.5-14.5); Segmented Neutrophils % 53.6 %; White Blood Count 7.3 K/mcL (4.3-11.1)
[2021-03-03 05:44] LABS: BUN/Creatinine Ratio 15 (6-26); Blood Urea Nitrogen 10 mg/dL (8-23); Carbon Dioxide 27 mEq/L (23-29); Chloride 99 mEq/L (98-107); Glucose 236 mg/dL (70-105); Magnesium 1.7 mg/dL (1.6-2.6); Osmolality,Calculated 285 (280-300); Phosphorous 3.1 mg/dL (2.7-4.5); Potassium 4.1 mEq/L (3.5-5.1); Sodium 134 mEq/L (136-145); eGFR For African Americans > 60 (> 60); eGFR For Non-African Americans > 60 (> 60)
[2021-03-03] MEDS: Aspirin Enteric Coated 81 MG Tablet PO SCH (08:36)
[2021-03-03] MEDS: lisinopriL 10 MG TABLET PO SCH (08:36)
[2021-03-03] MEDS: Insulin LISPRO 300 UNITS/3 ML VIAL SUBQ SCH ×4 (08:36→20:29)
[2021-03-03] MEDS: Pregabalin 50 MG CAPSULE PO SCH ×2 (08:36→20:29)
[2021-03-03] MEDS: Isosorbide MONOnitrate (24 HR) 30 MG TAB.ER.24H PO SCH (08:37)
[2021-03-03] MEDS: Carbidopa/Levodopa 25/100 TABLET PO SCH ×4 (08:37→20:29)
[2021-03-03] MEDS: Multivit/Ca/Min/Fe/FA 1 TAB TABLET PO SCH (08:37)
[2021-03-03] MEDS: Spironolactone 25 MG TABLET PO SCH (08:37)
[2021-03-03] MEDS: Cholecalciferol (D-3) 1,000 UNIT (25MCG) TABLET PO SCH (08:37)
[2021-03-03] MEDS: Ringers Solution, Lactated 1,000 ML IVC SCH (08:57)
[2021-03-03] MEDS: Budesonide/Formoterol 160/4.5 1 PUFF INH IH SCH ×2 (10:12→22:43)
[2021-03-03] MEDS: Insulin DETEMIR 100 UNIT/ML X5UNITS SUBQ SCH (20:29)
[2021-03-03] MEDS: Melatonin 3 MG TABLET PO SCH (20:29)
[2021-03-03] MEDS ORDERED: traZODone 50 MG TABLET PO SCH (21:00)
[2021-03-03] MEDS ORDERED: rOPINIRole 0.25 MG TABLET PO SCH (21:00)
[2021-03-04 01:07] LABS: Basophils # 0.1 K/mcL (0.0-0.2); Basophils % 0.8 %; Eosinophils # 0.2 K/mcL (0.0-0.6); Eosinophils % 3.1 %; Hematocrit 35.4 % (37.5-50.1); Hemoglobin 12.1 g/dL (12.9-16.9); Immature Granulocytes % 0.2 % (0-4); Lymphocytes # 2.6 K/mcL (0.6-4.6); Lymphocytes % 40.4 %; Mean Corpuscular HGB Conc 34.2 g/dL (31.6-35.5); Mean Corpuscular Hemoglobin 31.6 pg (28.0-33.3); Mean Corpuscular Volume 92.4 fL (83.0-100.0); Mean Platelet Volume 11.4 fL (9.4-12.4); Monocytes # 0.5 K/mcL (0.0-1.3); Monocytes % 7.5 %; Neutrophils # 3.1 K/mcL (1.6-8.9); Platelet Count 185 K/mcL (140-400); Red Blood Count 3.83 M/mcL (4.19-5.50); Red Cell Distribution Width 12.1 % (11.5-14.5); White Blood Count 6.5 K/mcL (4.3-11.1)
[2021-03-04 01:27] LABS: BUN/Creatinine Ratio 21 (6-26); Blood Urea Nitrogen 14 mg/dL (8-23); Calcium 8.6 mg/dL (8.6-10.3); Carbon Dioxide 26 mEq/L (23-29); Chloride 99 mEq/L (98-107); Glucose 251 mg/dL (70-105); Magnesium 1.6 mg/dL (1.6-2.6); Osmolality,Calculated 283 (280-300); Phosphorous 3.4 mg/dL (2.7-4.5); Sodium 132 mEq/L (136-145); eGFR For African Americans > 60 (> 60); eGFR For Non-African Americans > 60 (> 60)
[2021-03-04] MEDS: Levothyroxine 25 MCG TABLET PO SCH (05:45)
[2021-03-04] MEDS: *HR* Heparin 5,000 UNIT/ML VIAL SQ SCH (05:45)
[2021-03-04] MEDS: Aspirin Enteric Coated 81 MG Tablet PO SCH (07:20)
[2021-03-04] MEDS: lisinopriL 10 MG TABLET PO SCH (07:28)
[2021-03-04] MEDS: Multivit/Ca/Min/Fe/FA 1 TAB TABLET PO SCH (07:28)
[2021-03-04] MEDS: Spironolactone 25 MG TABLET PO SCH (07:28)
[2021-03-04] MEDS: Cholecalciferol (D-3) 1,000 UNIT (25MCG) TABLET PO SCH (07:28)
[2021-03-04] MEDS: Pregabalin 50 MG CAPSULE PO SCH ×2 (07:28→20:13)
[2021-03-04] MEDS: Isosorbide MONOnitrate (24 HR) 30 MG TAB.ER.24H PO SCH (07:28)
[2021-03-04] MEDS: Carbidopa/Levodopa 25/100 TABLET PO SCH ×4 (07:28→20:13)
[2021-03-04] MEDS ORDERED: Insulin LISPRO 300 UNITS/3 ML VIAL SUBQ SCH ×2 (08:00→21:00)
[2021-03-04 08:24] LABS: Influenza A PCR Negative (Negative); Influenza B PCR Negative (Negative); Resp. Syncytial Virus PCR Negative (Negative); SARS-CoV-2 by PCR (In House) Negative (Negative)
[2021-03-04] MEDS: Insulin DETEMIR 100 UNIT/ML X5UNITS SUBQ SCH ×2 (08:40→20:12)
[2021-03-04] MEDS: Insulin LISPRO 300 UNITS/3 ML VIAL SUBQ SCH ×5 (08:40→17:18)
[2021-03-04] MEDS ORDERED: *HR* Propofol 200 MG/20 ML VIAL IVP ONE (08:40)
[2021-03-04] MEDS ORDERED: Ondansetron 4 MG/2 ML VIAL ONE (08:43)
[2021-03-04] MEDS ORDERED: Lidocaine -MPF 2% 2 ML VIAL ONE (08:43)
[2021-03-04] MEDS ORDERED: *HR* OxyCODONE Immed Rel 5 MG TABLET PO PRN (10:12)
[2021-03-04] MEDS ORDERED: Naloxone 0.4 MG/ML INJ IVP PRN (10:12)
[2021-03-04] MEDS ORDERED: Ondansetron 4 MG/2 ML VIAL IVP PRN (10:12)
[2021-03-04] MEDS ORDERED: *HR* Promethazine 25 MG/ML VIAL IM PRN (10:12)
[2021-03-04] MEDS ORDERED: Dextrose Gel 15 GM/37.5 ML TUBE PO PRN ×2 (10:12)
[2021-03-04] MEDS ORDERED: Acetaminophen 325 MG TABLET PO PRN (10:12)
[2021-03-04] MEDS ORDERED: *HR* HYDROcodone/Acet 5/325 mg TABLET PO PRN (10:12)
[2021-03-04] MEDS ORDERED: diazePAM 5 MG TABLET PO PRN (10:12)
[2021-03-04] MEDS ORDERED: *HR* Dextrose 50 % in Water (Vial) 50 ML VIAL IVP PRN (10:12)
[2021-03-04] MEDS ORDERED: D5% in Water 1,000 ML IVC PRN (10:12)
[2021-03-04] MEDS: Budesonide/Formoterol 160/4.5 1 PUFF INH IH SCH ×2 (10:31→19:18)
[2021-03-04] MEDS ORDERED: *HR* Heparin 5,000 UNIT/ML VIAL SQ SCH (14:00)
[2021-03-04] MEDS: Sulfamethoxazole/Trimeth DS 1 EACH TABLET PO SCH (20:12)
[2021-03-04] MEDS: Apixaban 5 MG TABLET PO SCH (20:13)
[2021-03-04] MEDS ORDERED: traZODone 50 MG TABLET PO SCH (21:00)
[2021-03-04] MEDS ORDERED: rOPINIRole 0.25 MG TABLET PO SCH (21:00)
[2021-03-04] MEDS ORDERED: Melatonin 3 MG TABLET PO SCH (21:00)
[2021-03-05 05:47] LABS: Basophils % 0.4 %; Eosinophils # 0.1 K/mcL (0.0-0.6); Eosinophils % 1.6 %; Hematocrit 38.5 % (37.5-50.1); Immature Granulocytes % 0.2 % (0-4); Lymphocytes # 2.8 K/mcL (0.6-4.6); Lymphocytes % 33.8 %; Mean Corpuscular HGB Conc 33.8 g/dL (31.6-35.5); Mean Corpuscular Hemoglobin 32.6 pg (28.0-33.3); Mean Corpuscular Volume 96.5 fL (83.0-100.0); Mean Platelet Volume 11.4 fL (9.4-12.4); Monocytes # 0.6 K/mcL (0.0-1.3); Monocytes % 6.6 %; Neutrophils # 4.8 K/mcL (1.6-8.9); Platelet Count 169 K/mcL (140-400); Red Blood Count 3.99 M/mcL (4.19-5.50); Red Cell Distribution Width 12.2 % (11.5-14.5); Segmented Neutrophils % 57.4 %; White Blood Count 8.3 K/mcL (4.3-11.1)
[2021-03-05] MEDS ORDERED: Levothyroxine 25 MCG TABLET PO SCH (06:00)
[2021-03-05 06:04] LABS: BUN/Creatinine Ratio 18 (6-26); Blood Urea Nitrogen 14 mg/dL (8-23); Calcium 8.8 mg/dL (8.6-10.3); Carbon Dioxide 26 mEq/L (23-29); Chloride 98 mEq/L (98-107); Glucose 284 mg/dL (70-105); Magnesium 1.7 mg/dL (1.6-2.6); Osmolality,Calculated 283 (280-300); Phosphorous 3.3 mg/dL (2.7-4.5); Potassium 4.2 mEq/L (3.5-5.1); Sodium 131 mEq/L (136-145); eGFR For African Americans > 60 (> 60); eGFR For Non-African Americans > 60 (> 60)
[2021-03-05] MEDS: Insulin DETEMIR 100 UNIT/ML X5UNITS SUBQ SCH (07:44)
[2021-03-05] MEDS: Insulin LISPRO 300 UNITS/3 ML VIAL SUBQ SCH ×4 (07:44→12:13)
[2021-03-05] MEDS: Carbidopa/Levodopa 25/100 TABLET PO SCH ×2 (07:46→14:23)
[2021-03-05] MEDS: Apixaban 5 MG TABLET PO SCH (07:46)
[2021-03-05] MEDS: Pregabalin 50 MG CAPSULE PO SCH (07:47)
[2021-03-05] MEDS: Sulfamethoxazole/Trimeth DS 1 EACH TABLET PO SCH ×2 (07:47→14:22)
[2021-03-05] MEDS ORDERED: Multivit/Ca/Min/Fe/FA 1 TAB TABLET PO SCH (09:00)
[2021-03-05] MEDS ORDERED: Aspirin Enteric Coated 81 MG Tablet PO SCH (09:00)
[2021-03-05] MEDS ORDERED: Cholecalciferol (D-3) 1,000 UNIT (25MCG) TABLET PO SCH (09:00)
[2021-03-05] MEDS ORDERED: lisinopriL 10 MG TABLET PO SCH (09:00)
[2021-03-05] MEDS ORDERED: Spironolactone 25 MG TABLET PO SCH (09:00)
[2021-03-05] MEDS ORDERED: Isosorbide MONOnitrate (24 HR) 30 MG TAB.ER.24H PO SCH (09:00)
[2021-03-05] MEDS: Budesonide/Formoterol 160/4.5 1 PUFF INH IH SCH (09:36)
[2021-03-05 12:03] VITALS: BP 129/75
[2021-03-05] MEDS ORDERED: Sulfamethoxazole/Trimeth DS 1 EACH TABLET PO ONE (14:01)
[2021-03-05] MEDS ORDERED: Insulin DETEMIR 100 UNIT/ML X5UNITS SUBQ SCH (21:00)
== END 2021-03-05 16:28 | disposition home or self-care (01) | DRG 617 ==
LOC: 3NENU → SUATTDRO 23:36
PROVIDERS: ADMIT Family Medicine; ATTEND Internal Medicine

== ENCOUNTER 2021-04-04 10:15 | Inpatient (IN) ==
[2021-04-04] MEDS ORDERED: 0.9 % Sodium Chloride 1,000 ML IVC ONE ×2 (10:58→11:29)
[2021-04-04] MEDS ORDERED: Piperacillin/Tazobactam 3.375 GM in Water for inj. (sterile) 20 ML IVP ONE (11:00)
[2021-04-04 11:21] LABS: Basophils # 0.1 K/mcL (0.0-0.2); Basophils % 0.8 %; Eosinophils # 0.2 K/mcL (0.0-0.6); Eosinophils % 2.7 %; Hematocrit 33.9 % (37.5-50.1); Hemoglobin 11.3 g/dL (12.9-16.9); Immature Granulocytes % 0.3 % (0-4); Lymphocytes # 3.2 K/mcL (0.6-4.6); Lymphocytes % 42.7 %; Mean Corpuscular HGB Conc 33.3 g/dL (31.6-35.5); Mean Corpuscular Hemoglobin 32.3 pg (28.0-33.3); Mean Corpuscular Volume 96.9 fL (83.0-100.0); Mean Platelet Volume 11.9 fL (9.4-12.4); Monocytes # 0.6 K/mcL (0.0-1.3); Monocytes % 8.1 %; Neutrophils # 3.4 K/mcL (1.6-8.9); Platelet Count 205 K/mcL (140-400); Red Cell Distribution Width 13.1 % (11.5-14.5); Segmented Neutrophils % 45.4 %; White Blood Count 7.5 K/mcL (4.3-11.1)
[2021-04-04] MEDS ORDERED: 0.9 % Sodium Chloride 1,000 ML ONE (11:30)
[2021-04-04 11:54] LABS: BUN/Creatinine Ratio 13 (6-26); Blood Urea Nitrogen 14 mg/dL (8-23); Calcium 8.3 mg/dL (8.6-10.3); Carbon Dioxide 27 mEq/L (23-29); Chloride 104 mEq/L (98-107); Glucose 172 mg/dL (70-105); Osmolality,Calculated 291 (280-300); Potassium 3.8 mEq/L (3.5-5.1); Sodium 138 mEq/L (136-145); Troponin I < 0.03 ng/mL (< 0.04); eGFR For African Americans > 60 (> 60); eGFR For Non-African Americans > 60 (> 60)
[2021-04-04] MEDS: Norepinephrine 4 MG/254 ML IV.SOLN IVC SCH ×3 (12:48→20:30)
[2021-04-04 13:19] LABS: Basophils # 0.1 K/mcL (0.0-0.2); Basophils % 0.7 %; Eosinophils # 0.2 K/mcL (0.0-0.6); Eosinophils % 3.1 %; Hematocrit 33.5 % (37.5-50.1); Hemoglobin 10.8 g/dL (12.9-16.9); Immature Granulocytes % 0.4 % (0-4); Lymphocytes # 3.2 K/mcL (0.6-4.6); Lymphocytes % 41.9 %; Mean Corpuscular HGB Conc 32.2 g/dL (31.6-35.5); Mean Corpuscular Hemoglobin 31.3 pg (28.0-33.3); Mean Corpuscular Volume 97.1 fL (83.0-100.0); Mean Platelet Volume 11.7 fL (9.4-12.4); Monocytes # 0.7 K/mcL (0.0-1.3); Monocytes % 8.5 %; Neutrophils # 3.5 K/mcL (1.6-8.9); Platelet Count 177 K/mcL (140-400); Red Blood Count 3.45 M/mcL (4.19-5.50); Red Cell Distribution Width 13.2 % (11.5-14.5); Segmented Neutrophils % 45.4 %; White Blood Count 7.7 K/mcL (4.3-11.1)
[2021-04-04 13:34] LABS: Estimated Average Glucose 249 mg/dl; Hemoglobin A1C 10.3 %
[2021-04-04 13:39] LABS: Acetaminophen < 10 mcg/mL (10-20); BUN/Creatinine Ratio 15 (6-26); Blood Urea Nitrogen 15 mg/dL (8-23); Calcium 8.4 mg/dL (8.6-10.3); Carbon Dioxide 25 mEq/L (23-29); Chloride 103 mEq/L (98-107); Chol/HDL Ratio 3.3 (0-4.9); Cholesterol 123 mg/dL (< 200); Ethanol < 10 mg/dL (Less than 10); Glucose 137 mg/dL (70-105); HDL Cholesterol 37 mg/dL (40-59); LDL Cholesterol,Calculated 57 mg/dL (< 100); Osmolality,Calculated 291 (280-300); Salicylate < 2.5 mg/dL (15.0-30.0); Sodium 139 mEq/L (136-145); Triglycerides 144 mg/dL (< 150); eGFR For African Americans > 60 (> 60); eGFR For Non-African Americans > 60 (> 60)
[2021-04-04] MEDS ORDERED: Naloxone 0.4 MG/ML INJ IVP PRN (14:43)
[2021-04-04] MEDS ORDERED: Dextrose Gel 15 GM/37.5 ML TUBE PO PRN ×2 (14:51)
[2021-04-04] MEDS ORDERED: *HR* Dextrose 50 % in Water (Vial) 50 ML VIAL IVP PRN (14:51)
[2021-04-04] MEDS ORDERED: D5% in Water 1,000 ML IVC PRN (14:51)
[2021-04-04] MEDS ORDERED: Vancomycin (wt based) 1,000 MG VIAL IVPB SCH (15:00)
[2021-04-04] MEDS ORDERED: Budesonide/Formoterol 160/4.5 1 PUFF INH IH ONE (16:16)
[2021-04-04] MEDS: Carbidopa/Levodopa 25/100 TABLET PO SCH ×2 (17:39→20:35)
[2021-04-04] MEDS: Piperacillin/Tazobactam 3.375 GM in 0.9 % Sodium Chloride Mini Bag 100 ML IVPB SCH ×2 (17:39→23:12)
[2021-04-04] MEDS: Ringers Solution, Lactated 1,000 ML IVC SCH (17:40)
[2021-04-04] MEDS: Insulin LISPRO 300 UNITS/3 ML VIAL SUBQ SCH (20:31)
[2021-04-04] MEDS: Lactobacillus 1 EACH CAP.SPRINK PO SCH (20:32)
[2021-04-04] MEDS: Insulin DETEMIR 100 UNIT/ML X5UNITS SUBQ SCH (20:32)
[2021-04-04] MEDS: Pregabalin 50 MG CAPSULE PO SCH (20:33)
[2021-04-04] MEDS: *HR* Heparin 5,000 UNIT/ML VIAL SQ SCH (20:35)
[2021-04-04] MEDS: Melatonin 3 MG TABLET PO SCH (20:35)
[2021-04-04] MEDS: rOPINIRole 0.25 MG TABLET PO SCH (20:35)
[2021-04-04] MEDS: *HR* HYDROcodone/Acet 5/325 mg TABLET PO PRN (20:39)
[2021-04-04] MEDS: diazePAM 5 MG TABLET PO PRN (20:54)
[2021-04-04] MEDS: Budesonide/Formoterol 160/4.5 1 PUFF INH IH SCH (20:55)
[2021-04-05] MEDS ORDERED: Vancomycin 2,000 MG/520 ML IV.SOLN IVPB ONE (00:01)
[2021-04-05 00:33] LABS: Bilirubin,Urine Negative (Negative); Blood,Urine Negative (Negative); Clarity,Urine Clear (Clear); Color,Urine Light-Yellow (Yellow); Glucose,Urine (UA) 50 mg/dL (Normal); Ketones,Urine Negative (Negative); Leukocyte Esterase,Urine Negative (Negative); Nitrite,Urine Negative (Negative); PH,Urine 5.5 pH Units (5.0-8.0); Protein,Urine Trace mg/dL (Neg-Trace); RBC,Urine 0-3 per hpf (0-3); Specific Gravity,Urine 1.025 (1.010-1.025); Squamous Epithelial Cell,Urine Few per hpf (None-Few); Urobilinogen,Urine Normal (Normal); WBC,Urine 0-3 per hpf (0-3)
[2021-04-05 00:46] LABS: Amphetamine Screen,Urine Negative ng/mL (Cutoff=1000); Barbiturate Screen,Urine Negative ng/mL (Cutoff=200); Benzodiazepines Screen,Urine Positive ng/mL (Cutoff=200); Cannabinoid Screen,Urine Negative ng/mL (Cutoff = 50); Cocaine Screen,Urine Negative ng/mL (Cutoff= 300); Opiate Screen,Urine Positive ng/mL (Cutoff=300); Phencyclidine Screen,Urine Negative ng/mL (Cutoff=25)
[2021-04-05] MEDS: Ringers Solution, Lactated 1,000 ML IVC SCH ×2 (02:47→15:17)
[2021-04-05 04:56] LABS: Hematocrit 29.8 % (37.5-50.1); Hemoglobin 10.1 g/dL (12.9-16.9); Mean Corpuscular HGB Conc 33.9 g/dL (31.6-35.5); Mean Corpuscular Hemoglobin 32.6 pg (28.0-33.3); Mean Corpuscular Volume 96.1 fL (83.0-100.0); Platelet Count 145 K/mcL (140-400); Red Cell Distribution Width 13.2 % (11.5-14.5); White Blood Count 6.5 K/mcL (4.3-11.1)
[2021-04-05 05:08] LABS: BUN/Creatinine Ratio 17 (6-26); Blood Urea Nitrogen 13 mg/dL (8-23); Calcium 7.7 mg/dL (8.6-10.3); Carbon Dioxide 29 mEq/L (23-29); Chloride 106 mEq/L (98-107); Glucose 141 mg/dL (70-105); Osmolality,Calculated 288 (280-300); Potassium 3.7 mEq/L (3.5-5.1); Sodium 138 mEq/L (136-145); eGFR For African Americans > 60 (> 60); eGFR For Non-African Americans > 60 (> 60)
[2021-04-05] MEDS: *HR* Heparin 5,000 UNIT/ML VIAL SQ SCH ×3 (05:58→20:53)
[2021-04-05] MEDS: Budesonide/Formoterol 160/4.5 1 PUFF INH IH SCH ×2 (07:49→20:07)
[2021-04-05] MEDS: Insulin LISPRO 300 UNITS/3 ML VIAL SUBQ SCH ×3 (08:05→17:00)
[2021-04-05] MEDS: Piperacillin/Tazobactam 3.375 GM in 0.9 % Sodium Chloride Mini Bag 100 ML IVPB SCH ×3 (08:29→23:26)
[2021-04-05] MEDS: Levothyroxine 25 MCG TABLET PO SCH (10:29)
[2021-04-05] MEDS: Multivit/Ca/Min/Fe/FA 1 TAB TABLET PO SCH (10:30)
[2021-04-05] MEDS: Pregabalin 50 MG CAPSULE PO SCH ×2 (10:30→20:51)
[2021-04-05] MEDS: Aspirin Enteric Coated 81 MG Tablet PO SCH (10:30)
[2021-04-05] MEDS: Carbidopa/Levodopa 25/100 TABLET PO SCH ×4 (10:30→20:51)
[2021-04-05] MEDS: Lactobacillus 1 EACH CAP.SPRINK PO SCH ×2 (10:30→20:51)
[2021-04-05] MEDS: Cholecalciferol (D-3) 1,000 UNIT (25MCG) TABLET PO SCH (10:30)
[2021-04-05] MEDS: Vancomycin 1,500 MG/265 ML IV.SOLN IVPB SCH ×2 (12:24→23:27)
[2021-04-05] MEDS: Norepinephrine 4 MG/254 ML IV.SOLN IVC SCH (15:19)
[2021-04-05] MEDS ORDERED: Famotidine 20 MG/2 ML VIAL ONE (17:02)
[2021-04-05] MEDS ORDERED: Acetaminophen IV 1,000 MG/100 ML BAG IVPB ONE (17:02)
[2021-04-05] MEDS ORDERED: *HR* Propofol 200 MG/20 ML VIAL IVP ONE (17:03)
[2021-04-05] MEDS: rOPINIRole 0.25 MG TABLET PO SCH (20:51)
[2021-04-05] MEDS: Melatonin 3 MG TABLET PO SCH (20:52)
[2021-04-05] MEDS: Insulin DETEMIR 100 UNIT/ML X5UNITS SUBQ SCH ×2 (20:53→23:17)
[2021-04-05] MEDS: *HR* HYDROcodone/Acet 5/325 mg TABLET PO PRN (22:32)
[2021-04-06] MEDS ORDERED: *HR* OxyCODONE Immed Rel 5 MG TABLET PO PRN (00:03)
[2021-04-06 00:34] LABS: Hematocrit 32.1 % (37.5-50.1); Hemoglobin 10.6 g/dL (12.9-16.9); Mean Corpuscular Hemoglobin 31.7 pg (28.0-33.3); Mean Corpuscular Volume 96.1 fL (83.0-100.0); Platelet Count 154 K/mcL (140-400); Red Blood Count 3.34 M/mcL (4.19-5.50); White Blood Count 8.1 K/mcL (4.3-11.1)
[2021-04-06 00:51] LABS: BUN/Creatinine Ratio 14 (6-26); Blood Urea Nitrogen 10 mg/dL (8-23); Calcium 8.2 mg/dL (8.6-10.3); Carbon Dioxide 26 mEq/L (23-29); Chloride 102 mEq/L (98-107); Glucose 124 mg/dL (70-105); Osmolality,Calculated 288 (280-300); Potassium 3.7 mEq/L (3.5-5.1); Sodium 139 mEq/L (136-145); eGFR For African Americans > 60 (> 60); eGFR For Non-African Americans > 60 (> 60)
[2021-04-06] MEDS: Levothyroxine 25 MCG TABLET PO SCH (05:12)
[2021-04-06] MEDS: *HR* Heparin 5,000 UNIT/ML VIAL SQ SCH ×3 (05:12→21:01)
[2021-04-06] MEDS: *HR* HYDROcodone/Acet 5/325 mg TABLET PO PRN ×2 (06:04→16:37)
[2021-04-06] MEDS: Piperacillin/Tazobactam 3.375 GM in 0.9 % Sodium Chloride Mini Bag 100 ML IVPB SCH ×3 (08:11→23:50)
[2021-04-06] MEDS: Lactobacillus 1 EACH CAP.SPRINK PO SCH ×2 (08:16→21:02)
[2021-04-06] MEDS: Cholecalciferol (D-3) 1,000 UNIT (25MCG) TABLET PO SCH (08:16)
[2021-04-06] MEDS: Aspirin Enteric Coated 81 MG Tablet PO SCH (08:16)
[2021-04-06] MEDS: Carbidopa/Levodopa 25/100 TABLET PO SCH ×4 (08:16→21:02)
[2021-04-06] MEDS: Multivit/Ca/Min/Fe/FA 1 TAB TABLET PO SCH (08:19)
[2021-04-06] MEDS: diazePAM 5 MG TABLET PO PRN ×2 (08:19→16:38)
[2021-04-06] MEDS: Ringers Solution, Lactated 1,000 ML IVC SCH ×2 (08:23→13:44)
[2021-04-06] MEDS: Insulin LISPRO 300 UNITS/3 ML VIAL SUBQ SCH ×3 (08:30→18:27)
[2021-04-06] MEDS: Pregabalin 50 MG CAPSULE PO SCH ×2 (08:32→21:02)
[2021-04-06] MEDS ORDERED: Naloxone 0.4 MG/ML INJ IVP PRN (10:06)
[2021-04-06] MEDS ORDERED: Dextrose Gel 15 GM/37.5 ML TUBE PO PRN ×2 (10:06)
[2021-04-06] MEDS ORDERED: Ringers Solution, Lactated 1,000 ML IVC SCH (10:06)
[2021-04-06] MEDS ORDERED: D5% in Water 1,000 ML IVC PRN (10:06)
[2021-04-06] MEDS ORDERED: *HR* Dextrose 50 % in Water (Vial) 50 ML VIAL IVP PRN (10:06)
[2021-04-06] MEDS: lisinopriL 10 MG TABLET PO SCH (11:40)
[2021-04-06] MEDS: *HR* OxyCODONE Immed Rel 5 MG TABLET PO PRN ×2 (11:40→21:29)
[2021-04-06] MEDS: Spironolactone 25 MG TABLET PO SCH (11:40)
[2021-04-06] MEDS: Isosorbide MONOnitrate (24 HR) 30 MG TAB.ER.24H PO SCH (11:40)
[2021-04-06] MEDS ORDERED: Vancomycin 1,500 MG/265 ML IV.SOLN IVPB SCH (12:00)
[2021-04-06] MEDS: Budesonide/Formoterol 160/4.5 1 PUFF INH IH SCH ×2 (13:42→20:00)
[2021-04-06] MEDS: Insulin DETEMIR 100 UNIT/ML X5UNITS SUBQ SCH (21:01)
[2021-04-06] MEDS: rOPINIRole 0.25 MG TABLET PO SCH (21:02)
[2021-04-06] MEDS: Melatonin 3 MG TABLET PO SCH (21:02)
[2021-04-06] MEDS: Vancomycin 1,250 MG/262.5 ML IV.SOLN IVPB SCH (23:50)
[2021-04-07 04:24] LABS: Hematocrit 30.2 % (37.5-50.1); Mean Corpuscular HGB Conc 33.1 g/dL (31.6-35.5); Mean Corpuscular Hemoglobin 32.2 pg (28.0-33.3); Mean Corpuscular Volume 97.1 fL (83.0-100.0); Mean Platelet Volume 12.3 fL (9.4-12.4); Platelet Count 132 K/mcL (140-400); Red Blood Count 3.11 M/mcL (4.19-5.50); Red Cell Distribution Width 13.1 % (11.5-14.5)
[2021-04-07 04:41] LABS: BUN/Creatinine Ratio 14 (6-26); Blood Urea Nitrogen 10 mg/dL (8-23); Calcium 8.2 mg/dL (8.6-10.3); Carbon Dioxide 26 mEq/L (23-29); Chloride 102 mEq/L (98-107); Glucose 171 mg/dL (70-105); Magnesium 1.3 mg/dL (1.6-2.6); Osmolality,Calculated 291 (280-300); Potassium 3.9 mEq/L (3.5-5.1); Sodium 139 mEq/L (136-145); eGFR For African Americans > 60 (> 60); eGFR For Non-African Americans > 60 (> 60)
[2021-04-07] MEDS: *HR* Heparin 5,000 UNIT/ML VIAL SQ SCH ×3 (05:13→22:17)
[2021-04-07] MEDS: Levothyroxine 25 MCG TABLET PO SCH (05:13)
[2021-04-07] MEDS: Budesonide/Formoterol 160/4.5 1 PUFF INH IH SCH ×2 (07:20→22:36)
[2021-04-07] MEDS: Insulin LISPRO 300 UNITS/3 ML VIAL SUBQ SCH ×3 (09:16→17:17)
[2021-04-07] MEDS: Spironolactone 25 MG TABLET PO SCH (10:39)
[2021-04-07] MEDS: Carbidopa/Levodopa 25/100 TABLET PO SCH ×4 (10:39→22:54)
[2021-04-07] MEDS: Aspirin Enteric Coated 81 MG Tablet PO SCH (10:39)
[2021-04-07] MEDS: lisinopriL 10 MG TABLET PO SCH (10:40)
[2021-04-07] MEDS: Pregabalin 50 MG CAPSULE PO SCH ×2 (10:41→22:16)
[2021-04-07] MEDS: Multivit/Ca/Min/Fe/FA 1 TAB TABLET PO SCH (10:42)
[2021-04-07] MEDS: Piperacillin/Tazobactam 3.375 GM in 0.9 % Sodium Chloride Mini Bag 100 ML IVPB SCH ×2 (10:42→16:18)
[2021-04-07] MEDS: Cholecalciferol (D-3) 1,000 UNIT (25MCG) TABLET PO SCH (10:42)
[2021-04-07] MEDS: Lactobacillus 1 EACH CAP.SPRINK PO SCH ×2 (10:42→22:17)
[2021-04-07] MEDS: Isosorbide MONOnitrate (24 HR) 30 MG TAB.ER.24H PO SCH (10:42)
[2021-04-07] MEDS: *HR* OxyCODONE Immed Rel 5 MG TABLET PO PRN (11:05)
[2021-04-07] MEDS: Vancomycin 1,250 MG/262.5 ML IV.SOLN IVPB SCH (12:45)
[2021-04-07] MEDS: rOPINIRole 0.25 MG TABLET PO SCH (22:16)
[2021-04-07] MEDS: Insulin DETEMIR 100 UNIT/ML X5UNITS SUBQ SCH (22:17)
[2021-04-07] MEDS: Melatonin 3 MG TABLET PO SCH (22:17)
[2021-04-08] MEDS: Piperacillin/Tazobactam 3.375 GM in 0.9 % Sodium Chloride Mini Bag 100 ML IVPB SCH ×3 (00:58→15:29)
[2021-04-08] MEDS: Vancomycin 1,250 MG/262.5 ML IV.SOLN IVPB SCH ×2 (00:59→13:31)
[2021-04-08] MEDS: *HR* OxyCODONE Immed Rel 5 MG TABLET PO PRN (01:02)
[2021-04-08 04:51] LABS: Hematocrit 28.8 % (37.5-50.1); Hemoglobin 9.3 g/dL (12.9-16.9); Mean Corpuscular HGB Conc 32.3 g/dL (31.6-35.5); Mean Corpuscular Hemoglobin 31.4 pg (28.0-33.3); Mean Corpuscular Volume 97.3 fL (83.0-100.0); Mean Platelet Volume 11.5 fL (9.4-12.4); Platelet Count 145 K/mcL (140-400); Red Blood Count 2.96 M/mcL (4.19-5.50); Red Cell Distribution Width 13.2 % (11.5-14.5); White Blood Count 5.8 K/mcL (4.3-11.1)
[2021-04-08 05:09] LABS: BUN/Creatinine Ratio 14 (6-26); Blood Urea Nitrogen 11 mg/dL (8-23); Calcium 8.3 mg/dL (8.6-10.3); Carbon Dioxide 30 mEq/L (23-29); Chloride 101 mEq/L (98-107); Glucose 177 mg/dL (70-105); Osmolality,Calculated 286 (280-300); Potassium 3.6 mEq/L (3.5-5.1); Sodium 136 mEq/L (136-145); eGFR For African Americans > 60 (> 60); eGFR For Non-African Americans > 60 (> 60)
[2021-04-08] MEDS: Carbidopa/Levodopa 25/100 TABLET PO SCH ×4 (06:19→20:30)
[2021-04-08] MEDS: *HR* Heparin 5,000 UNIT/ML VIAL SQ SCH ×3 (06:19→20:31)
[2021-04-08] MEDS: Levothyroxine 25 MCG TABLET PO SCH (06:19)
[2021-04-08] MEDS: Insulin LISPRO 300 UNITS/3 ML VIAL SUBQ SCH ×3 (09:59→17:26)
[2021-04-08] MEDS: Pregabalin 50 MG CAPSULE PO SCH ×2 (09:59→20:30)
[2021-04-08] MEDS: Cholecalciferol (D-3) 1,000 UNIT (25MCG) TABLET PO SCH (10:00)
[2021-04-08] MEDS: Lactobacillus 1 EACH CAP.SPRINK PO SCH ×2 (10:00→20:30)
[2021-04-08] MEDS: lisinopriL 10 MG TABLET PO SCH (10:00)
[2021-04-08] MEDS: Aspirin Enteric Coated 81 MG Tablet PO SCH (10:00)
[2021-04-08] MEDS: Isosorbide MONOnitrate (24 HR) 30 MG TAB.ER.24H PO SCH (10:00)
[2021-04-08] MEDS: Spironolactone 25 MG TABLET PO SCH (10:01)
[2021-04-08] MEDS: Multivit/Ca/Min/Fe/FA 1 TAB TABLET PO SCH (10:01)
[2021-04-08] MEDS: Budesonide/Formoterol 160/4.5 1 PUFF INH IH SCH ×2 (10:24→20:57)
[2021-04-08] MEDS ORDERED: Magnesium Sulfate 1 GM/102 ML PIGGYBACK IVPB ONE (13:15)
[2021-04-08] MEDS: *HR* HYDROcodone/Acet 5/325 mg TABLET PO PRN (15:30)
[2021-04-08] MEDS: Melatonin 3 MG TABLET PO SCH (20:30)
[2021-04-08] MEDS: rOPINIRole 0.25 MG TABLET PO SCH (20:30)
[2021-04-08] MEDS: Insulin DETEMIR 100 UNIT/ML X5UNITS SUBQ SCH (20:39)
[2021-04-09] MEDS: Piperacillin/Tazobactam 3.375 GM in 0.9 % Sodium Chloride Mini Bag 100 ML IVPB SCH ×2 (00:34→13:44)
[2021-04-09] MEDS: Vancomycin 1,250 MG/262.5 ML IV.SOLN IVPB SCH ×2 (00:35→13:44)
[2021-04-09 05:45] LABS: Hematocrit 29.8 % (37.5-50.1); Hemoglobin 9.8 g/dL (12.9-16.9); Mean Corpuscular HGB Conc 32.9 g/dL (31.6-35.5); Mean Corpuscular Hemoglobin 32.1 pg (28.0-33.3); Mean Corpuscular Volume 97.7 fL (83.0-100.0); Platelet Count 157 K/mcL (140-400); Red Blood Count 3.05 M/mcL (4.19-5.50); Red Cell Distribution Width 13.2 % (11.5-14.5); White Blood Count 5.7 K/mcL (4.3-11.1)
[2021-04-09 06:01] LABS: BUN/Creatinine Ratio 16 (6-26); Blood Urea Nitrogen 12 mg/dL (8-23); Calcium 8.6 mg/dL (8.6-10.3); Carbon Dioxide 29 mEq/L (23-29); Chloride 103 mEq/L (98-107); Glucose 181 mg/dL (70-105); Osmolality,Calculated 292 (280-300); Potassium 3.7 mEq/L (3.5-5.1); Sodium 139 mEq/L (136-145); eGFR For African Americans > 60 (> 60); eGFR For Non-African Americans > 60 (> 60)
[2021-04-09] MEDS: Levothyroxine 25 MCG TABLET PO SCH (06:53)
[2021-04-09] MEDS: *HR* Heparin 5,000 UNIT/ML VIAL SQ SCH ×2 (06:53→15:53)
[2021-04-09] MEDS: Budesonide/Formoterol 160/4.5 1 PUFF INH IH SCH ×2 (07:50→19:20)
[2021-04-09] MEDS: Insulin LISPRO 300 UNITS/3 ML VIAL SUBQ SCH ×3 (08:05→17:21)
[2021-04-09] MEDS: Lactobacillus 1 EACH CAP.SPRINK PO SCH ×2 (08:06→21:17)
[2021-04-09] MEDS: Isosorbide MONOnitrate (24 HR) 30 MG TAB.ER.24H PO SCH (08:06)
[2021-04-09] MEDS: Carbidopa/Levodopa 25/100 TABLET PO SCH ×4 (08:06→21:18)
[2021-04-09] MEDS: Cholecalciferol (D-3) 1,000 UNIT (25MCG) TABLET PO SCH (08:06)
[2021-04-09] MEDS: Pregabalin 50 MG CAPSULE PO SCH ×2 (08:06→21:18)
[2021-04-09] MEDS: Aspirin Enteric Coated 81 MG Tablet PO SCH (08:06)
[2021-04-09] MEDS: Spironolactone 25 MG TABLET PO SCH (08:06)
[2021-04-09] MEDS: Multivit/Ca/Min/Fe/FA 1 TAB TABLET PO SCH (08:06)
[2021-04-09] MEDS: lisinopriL 10 MG TABLET PO SCH (08:07)
[2021-04-09] MEDS: Doxycycline 100 MG CAPSULE PO SCH (17:22)
[2021-04-09] MEDS ORDERED: traZODone 50 MG TABLET PO SCH (21:00)
[2021-04-09] MEDS: Melatonin 3 MG TABLET PO SCH (21:17)
[2021-04-09] MEDS: Apixaban 5 MG TABLET PO SCH (21:18)
[2021-04-09] MEDS: rOPINIRole 0.25 MG TABLET PO SCH (21:18)
[2021-04-09] MEDS: Insulin DETEMIR 100 UNIT/ML X5UNITS SUBQ SCH (21:19)
[2021-04-10] MEDS: Doxycycline 100 MG CAPSULE PO SCH ×2 (05:41→16:15)
[2021-04-10] MEDS: Levothyroxine 25 MCG TABLET PO SCH (05:41)
[2021-04-10 07:01] LABS: Hematocrit 34.6 % (37.5-50.1); Mean Corpuscular HGB Conc 33.2 g/dL (31.6-35.5); Mean Corpuscular Hemoglobin 32.1 pg (28.0-33.3); Mean Corpuscular Volume 96.6 fL (83.0-100.0); Mean Platelet Volume 11.5 fL (9.4-12.4); Platelet Count 204 K/mcL (140-400); Red Blood Count 3.58 M/mcL (4.19-5.50); Red Cell Distribution Width 13.3 % (11.5-14.5)
[2021-04-10 07:03] LABS: Hemoglobin 11.5 g/dL (12.9-16.9); White Blood Count 8.5 K/mcL (4.3-11.1)
[2021-04-10] MEDS: Insulin LISPRO 300 UNITS/3 ML VIAL SUBQ SCH ×3 (07:20→16:19)
[2021-04-10 07:26] LABS: BUN/Creatinine Ratio 16 (6-26); Blood Urea Nitrogen 11 mg/dL (8-23); Calcium 9.5 mg/dL (8.6-10.3); Carbon Dioxide 29 mEq/L (23-29); Chloride 104 mEq/L (98-107); Glucose 131 mg/dL (70-105); Osmolality,Calculated 291 (280-300); Potassium 3.7 mEq/L (3.5-5.1); Sodium 140 mEq/L (136-145); eGFR For African Americans > 60 (> 60); eGFR For Non-African Americans > 60 (> 60)
[2021-04-10] MEDS: Isosorbide MONOnitrate (24 HR) 30 MG TAB.ER.24H PO SCH (09:09)
[2021-04-10] MEDS: Carbidopa/Levodopa 25/100 TABLET PO SCH ×3 (09:09→16:18)
[2021-04-10] MEDS: Cholecalciferol (D-3) 1,000 UNIT (25MCG) TABLET PO SCH (09:09)
[2021-04-10] MEDS: Multivit/Ca/Min/Fe/FA 1 TAB TABLET PO SCH (09:10)
[2021-04-10] MEDS: Lactobacillus 1 EACH CAP.SPRINK PO SCH (09:10)
[2021-04-10] MEDS: Aspirin Enteric Coated 81 MG Tablet PO SCH (09:10)
[2021-04-10] MEDS: Pregabalin 50 MG CAPSULE PO SCH (09:10)
[2021-04-10] MEDS: Spironolactone 25 MG TABLET PO SCH (09:10)
[2021-04-10] MEDS: Apixaban 5 MG TABLET PO SCH (09:10)
[2021-04-10] MEDS: lisinopriL 10 MG TABLET PO SCH (09:15)
[2021-04-10] MEDS: diazePAM 5 MG TABLET PO PRN (09:29)
[2021-04-10] MEDS: Budesonide/Formoterol 160/4.5 1 PUFF INH IH SCH (09:42)
[2021-04-10] MEDS: *HR* OxyCODONE Immed Rel 5 MG TABLET PO PRN (11:33)
[2021-04-10 15:17] VITALS: BP 120/71
== END 2021-04-10 19:12 | disposition home or self-care (01) | DRG 856 ==
LOC: EMEROOARM 10:15 → ICNU 14:56 → SUATTDRO 14:56 → ICNU 15:30 → 3ANU 04-06 14:10 → 2ANU 04-10 04:09
PROVIDERS: ADMIT Internal Medicine; ATTEND Internal Medicine